=== PATIENT | male | born 1950 | race Caucasian/White ===

== ENCOUNTER 2018-04-13 15:21 | Emergency (ER) | payer MEDICARE ==
--- NOTE | 2018-04-13 15:59 | ER Document Report ---
ED General - General Chief Complaint: Flu Symptoms Stated Complaint: FEVER, NAUSEA Time Seen by Provider: 04/13/18 15:35 Notes: The patient is a 68-year-old male who presents with 1 days of subjective fevers , chills and nausea. He took some Kaopectate and his nausea has resolved. Patient also has 2 months of a rash over his left lower leg. 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 The rash is not expanding. Patient denies recent travel, shortness of breath, chest pain, abdominal pain, diarrhea, headache or sick contacts. TRAVEL OUTSIDE OF THE [place] IN LAST 30 DAYS: No - Related Data Allergies/Adverse Reactions: No Known Allergies Allergy (Verified 04/13/18 15:34) Past Medical History - General Information source: Patient - Social History Smoking Status: Never Smoker Chew tobacco use (# tins/day): No Frequency of alcohol use: None Drug Abuse: None Family History: Reviewed & Not Pertinent Patient has suicidal ideation: No Patient has homicidal ideation: No Renal/ Medical History: Denies: Hx Peritoneal Dialysis Past Surgical History: Reports: Hx Orthopedic Surgery Review of Systems - Review of Systems Notes: REVIEW OF SYSTEMS: CONSTITUTIONAL: +fevers, +chills EENT: -eye pain, -difficulty swallowing, -nasal congestion CARDIOVASCULAR: -chest pain, -syncope. RESPIRATORY: -cough, -SOB GASTROINTESTINAL: -abdominal pain, +nausea, -vomiting, -diarrhea GENITOURINARY: -dysuria, -hematuria MUSCULOSKELETAL: -back pain, -neck pain SKIN: +left leg rash HEMATOLOGIC: -easy bruising or bleeding. LYMPHATIC: -swollen, enlarged glands. NEUROLOGICAL: -altered mental status or loss of consciousness, -headache, - neurologic symptoms PSYCHIATRIC: -anxiety, -depression. ALL OTHER SYSTEMS REVIEWED AND NEGATIVE. Physical Exam - Vital signs Vitals: Temp Pulse BP Pulse Ox 99.1 F 84 143/72 H 95 04/13/18 15:27 04/13/18 15:27 04/13/18 15:27 04/13/18 15:27 - Notes Notes: PHYSICAL EXAMINATION: GENERAL: Well-appearing, well-nourished and in no acute distress. HEAD: Atraumatic, normocephalic. EYES: Pupils equal round and reactive to light, extraocular movements intact, sclera anicteric, conjunctiva are normal. ENT: nares patent, oropharynx clear without exudates. Moist mucous membranes. NECK: Normal range of motion, supple without lymphadenopathy LUNGS: Breath sounds clear to auscultation bilaterally and equal. No wheezes rales or rhonchi. HEART: Regular rate and rhythm without murmurs ABDOMEN: Soft, nontender, normoactive bowel sounds. No guarding, no rebound. No masses appreciated. EXTREMITIES: Normal range of motion, no pitting or edema. No cyanosis. NEUROLOGICAL: Cranial nerves grossly intact. Normal speech. No acute sensory and motor deficits. PSYCH: Normal mood, normal affect. SKIN: 3 cm circular erythematous macular area over left medial calf. Course - Re-evaluation Re-evalutation: Patient is well-appearing. His vital signs are normal and blood work is unremarkable, other than a slight leukocytosis. This appears nonspecific as there are no fevers. He has had this rash of his left lower leg for over a month. It does not appear consistent with [place] spotted fever, syphilis, Lyme, Coles-Karan or TEN. It is blanchable and may be associated with a mild vasculitis. Instructed him to follow-up with his primary care physician for further evaluation treatment. - Vital Signs Vital signs: Temp Pulse Resp BP Pulse Ox 98.3 F 86 16 142/80 H 96 04/13/18 17:42 04/13/18 17:42 04/13/18 17:42 04/13/18 17:42 04/13/18 17:42 - Laboratory Result Diagrams: 04/13/18 16:06 04/13/18 16:06 Laboratory results interpreted by me: 04/13/18 04/13/18 16:06 16:06 WBC 12.6 H RBC 3.93 L Hgb 12.5 L Hct 36.0 L Seg Neuts % (Manual) 94 H Band Neutrophils % 1 L Lymphocytes % (Manual) 2 L Abs Neuts (Manual) 12.0 H Abs Lymphs (Manual) 0.3 L Sodium 132.7 L Chloride 93 L Glucose 135 H Creatine Kinase 48 L - Diagnostic Test Radiology reviewed: Image reviewed, Reports reviewed Radiology results interpreted by me: CXR: NAD Discharge - Discharge Clinical Impression: Cough, Nausea Condition: Stable Disposition: HOME, SELF-CARE Additional Instructions: VOMITING: Vomiting (or nausea without vomiting) can be caused by many other different problems. It can mean that something's wrong with the stomach, such as ulcers or inflammation or the intestinal tract, such as appendicitis. But it can also be a symptom of a problem that has nothing to do with the stomach or intestines. Vomiting is common with severe headaches, earaches, tonsillitis, and kidney infections, etc. We see it with pneumonia or heart attacks. Drugs can cause nausea and vomiting. Many abdominal problems cause vomiting; for example, gallstones, kidney stones, pancreatitis, and intestinal obstruction ( blocked bowels). In most cases, curing the vomiting depends on fixing the problem that caused it. For temporary relief, we may use an anti-nausea medicine. For home use, we can prescribe suppositories, chewable pills, pills that dissolve in the mouth, or liquid anti-nausea drugs. If the vomiting seems to be caused by a problem in the stomach, acid-suppressing drugs may be prescribed as well. It's important to avoid dehydration. Sip small amounts of clear liquids ( soft drinks, tea, broth, etc) . Try to take fluids frequently even if you are vomiting to prevent dehydration. Take increasing amounts of fluid and when liquids are being consumed successfully, advance to small amounts of bland food (toast, soups, mashed potatoes, etc.) until you are able to resume a regular diet. Avoid aspirin, tobacco, and alcohol. If the vomiting worsens, if the problem that's making you vomit worsens, or if there's evidence of bleeding in the stomach (such as black, tarry stool, or bloody or black vomit), you should return immediately. Also, return if abdominal pain worsens or becomes localized to one area or you develop high fever. Call your doctor if you aren't improved in 24 hours. DIARRHEA, NON-SPECIFIC: Diarrhea means frequent, watery stools. There are many causes. Any problem that keeps the intestinal tract from absorbing water from the stool can lead to diarrhea. A sudden new diarrhea problem is usually caused by a virus, food sensitivity, toxic bacteria, or drugs. In this case, we expect the problem to go away soon. Testing is done only if you seem seriously ill from the diarrhea. If you have chronic diarrhea, or diarrhea that keeps coming back, we need to find out why. Chronic diarrhea can be due to inflammation of the bowels such as Crohn's disease or ulcerative colitis, food sensitivity such as intolerance to lactose or wheat protein, irritable bowel syndrome, and other problems. If your diarrhea is a significant problem but it's not clear why you have it, we' ll refer you to a specialist for further testing. During an episode of diarrhea, drink small amounts (two to six ounces) of clear liquids (soft drinks, sport drinks, herb teas, broth, etc). Take fluids frequently to prevent dehydration. It's usually not a problem to take mild anti- diarrhea medication such as Kaopectate or Pepto-Bismol. As the diarrhea eases, advance to small amounts of bland food (mashed potato, toast) for 24 hours. Call the physician if blood appears in your vomit or stool, if vomiting lasts longer than 24 hours, if the abdominal pain worsens or becomes localized to one area, if you develop high fever, or if you become lightheaded and weak. VIRAL SYNDROME: The physician has diagnosed a viral infection. Viruses not only cause "colds," but can cause many different symptoms including generalized aching, fever, headache, cough, diarrhea, nausea, vomiting, and fatigue. The treatment, for the most part, is simply relief of symptoms. This means that antibiotics are usually not given. Rest, fluids, pain medications and, occasionally, medication for the specific symptoms that are most bothersome will be prescribed. Use good handwashing to avoid passing the virus to others. Shared toys should be cleaned with disinfectant. Clean the toilets, sinks, and counter surfaces in bathrooms. Launder clothing in hot water. Contact the physician if you develop any new or unusual symptoms such as severe headache, stiff neck, high fever, chest pain, productive cough, or shortness of breath. You should be rechecked if you don't see marked improvement within seven to 10 days. ANTINAUSEA MEDICATION: You have been given a medication to suppress nausea and vomiting. This type of medication can be given as a shot, pill, or suppository. It will usually last for many hours. Pills and shots usually last six to eight hours. For the typical illness, only one or two doses of the medication may be necessary. Mild lightheadedness may occur. This type of medicine can cause drowsiness. Do not drive or operate dangerous machinery while under its influence. Do not mix with alcohol. See your doctor at once if you have muscle spasms or tightness, or uncontrollable motions (particularly of the neck, mouth, or jaw). Persistent vomiting or severe lightheadedness should also be evaluated by the physician. FOLLOW-UP CARE: If you have been referred to a physician for follow-up care, call the physician s office for an appointment as you were instructed or within the next two days. If you experience worsening or a significant change in your symptoms, notify the physician immediately or return to the Emergency Department at any time for re-evaluation. Prescriptions: Ondansetron [Zofran Odt 4 mg Tablet] 1 - 2 tab PO Q4H PRN #15 tab.rapdis PRN Reason: For Nausea/Vomiting Forms: Elevated Blood Pressure Referrals: KARINA CALI NP-C [NURSE PRACTITIONER] - Follow up as needed
[2018-04-13 16:23] LABS: HEMOGLOBIN 12.5 g/dL (13.5-17.0); MEAN CORPUSCULAR HEMOGLOBIN 31.9 pg (27.0-33.4); MEAN CORPUSCULAR HGB CONC 34.8 g/dL (32.0-36.0); MEAN CORPUSCULAR VOLUME 92 fl (80-97); PLATELET COUNT 266 10^3/uL (150-450); RED BLOOD COUNT 3.93 10^6/uL (4.35-5.55); RED CELL DISTRIBUTION WIDTH 13.6 % (11.5-14.0); WHITE BLOOD COUNT 12.6 10^3/uL (4.0-10.5)
[2018-04-13 16:35] LABS: ALANINE AMINOTRANSFERASE 31 U/L (21-72); ALBUMIN 3.9 g/dL (3.5-5.0); ALKALINE PHOSPHATASE 69 U/L (38-126); ANION GAP 10 (5-19); ASPARTATE AMINO TRANSFERASE 32 U/L (17-59); BILIRUBIN,DIRECT 0.3 mg/dL (0.0-0.4); BILIRUBIN,TOTAL 0.7 mg/dL (0.2-1.3); BLOOD UREA NITROGEN 12 mg/dL (7-20); CALCIUM 9.3 mg/dL (8.4-10.2); CARBON DIOXIDE 30 mmol/L (22-30); CHLORIDE 93 mmol/L (98-107); CREATINE KINASE 48 U/L (55-170); GLUCOSE 135 mg/dL (75-110); POTASSIUM 4.2 mmol/L (3.6-5.0); SODIUM 132.7 mmol/L (137-145); TOTAL PROTEIN 6.5 g/dL (6.3-8.2)
--- NOTE | 2018-04-13 16:43 | RADIOLOGY REPORT (SQ) ---
EXAM DESCRIPTION: CHEST 2 VIEWS COMPLETED DATE/TIME: 04/13/2018 4:18 pm REASON FOR STUDY: cough, fevers COMPARISON: February 2009 EXAM PARAMETERS: NUMBER OF VIEWS: two views TECHNIQUE: Digital Frontal and Lateral radiographic views of the chest acquired. RADIATION DOSE: NA LIMITATIONS: none FINDINGS: LUNGS AND PLEURA: No opacities, masses or pneumothorax. No pleural effusion. MEDIASTINUM AND HILAR STRUCTURES: No masses or contour abnormalities. HEART AND VASCULAR STRUCTURES: Heart normal size. No evidence for failure. BONES: No acute findings. HARDWARE: None in the chest. OTHER: Retrocardiac hiatal hernia is identified. IMPRESSION: NO ACUTE RADIOGRAPHIC FINDING IN THE CHEST. TECHNICAL DOCUMENTATION: JOB ID: [id number] [employer]- All Rights Reserved Reading location - IP/workstation name: [email or web address]
[2018-04-13 16:51] LABS: ABSOLUTE LYMPHOCYTES# (MANUAL) 0.3 10^3/uL (0.5-4.7); ABSOLUTE MONOCYTES # (MANUAL) 0.4 10^3/uL (0.1-1.4); BAND NEUTROPHILS % (MANUAL) 1 % (3-5); BASOPHILS % (MANUAL) 0 % (0-2); EOSINOPHILS % (MANUAL) 0 % (0-6); LYMPHOCYTES % (MANUAL) 2 % (13-45); MONOCYTES % (MANUAL) 3 % (3-13); SEGMENTED NEUTROPHILS % (MAN) 94 % (42-78); TOTAL CELLS COUNTED 100
[2018-04-13 16:53] LABS: HYPOCHROMASIA SLIGHT; PLATELET COMMENT ADEQUATE
[2018-04-13 17:45] VITALS: BP 142/80
== END 2018-04-13 17:50 | disposition home or self-care (01) ==
LOC: ER 15:21
DX: R05 Cough (principal); R11.0 Nausea; R50.9 Fever, unspecified; R21 Rash and other nonspecific skin eruption; G83.14 Monoplegia of lower limb affecting left nondominant side
CPT/HCPCS: 36415; 71046; 80053; 82550; 85025; 99284

== ENCOUNTER → 2018-04-18 | Outpatient (CLI) | payer MEDICARE ==
[2018-04-18 09:48] VITALS: BP 122/70
[2018-04-18 12:16] LABS: HEMATOCRIT 36.4 % (37.9-51.0); HEMOGLOBIN 12.7 g/dL (13.5-17.0); MEAN CORPUSCULAR HEMOGLOBIN 31.8 pg (27.0-33.4); MEAN CORPUSCULAR VOLUME 91 fl (80-97); PLATELET COUNT 386 10^3/uL (150-450); RED BLOOD COUNT 4.01 10^6/uL (4.35-5.55); RED CELL DISTRIBUTION WIDTH 13.2 % (11.5-14.0)
[2018-04-18 12:21] LABS: APPEARANCE,URINE CLEAR; BILIRUBIN,URINE NEGATIVE (NEGATIVE); COLOR,URINE YELLOW; GLUCOSE, URINE NEGATIVE (NEGATIVE); KETONES,URINE NEGATIVE (NEGATIVE); LEUKOCYTE ESTERASE,URINE NEGATIVE (NEGATIVE); NITRITE,URINE NEGATIVE (NEGATIVE); PROTEIN,URINE NEGATIVE (NEGATIVE); URINE SPECIFIC GRAVITY 1.012
[2018-04-18 12:45] LABS: ANION GAP 13 (5-19); BLOOD UREA NITROGEN 10 mg/dL (7-20); CARBON DIOXIDE 28 mmol/L (22-30); CHLORIDE 93 mmol/L (98-107); GLUCOSE 108 mg/dL (75-110); POTASSIUM 4.8 mmol/L (3.6-5.0); SODIUM 134.2 mmol/L (137-145)
--- NOTE | 2018-04-18 19:42 | EKG REPORT ---
SEVERITY:- NORMAL ECG - SINUS RHYTHM : Confirmed by: Maxine Milner MD 18-Apr-2018 19:41:05
== END ==
LOC: OD 11:08 → EDSTATUS 05-09 09:00
PROVIDERS: ATTEND Orthopaedic Surgery
DX: Z01.818 Encounter for other preprocedural examination (principal)
CPT/HCPCS: 36415; 80048; 81001; 85027; 93005; 93010

== ENCOUNTER 2018-09-15 16:32 | Emergency (ER) | payer MEDICARE ==
--- NOTE | 2018-09-15 17:06 | ER Document Report ---
ED Medical Screen (RME) - General Chief Complaint: Irregular Pulse Stated Complaint: IRREGULAR HEART RATE Time Seen by Provider: 09/15/18 16:53 Notes: Patient with known A. fib, reports heart rate in the 140-160 range since 830 this morning. The room became available so he was taken straight back. TRAVEL OUTSIDE OF THE [place] IN LAST 30 DAYS: No - Related Data Allergies/Adverse Reactions: No Known Allergies Allergy (Verified 04/18/18 09:17) Past Medical History - Social History Chew tobacco use (# tins/day): No Frequency of alcohol use: None Drug Abuse: None - Past Medical History Cardiac Medical History: Reports: Hx Hypertension Denies: Hx Coronary Artery Disease, Hx Heart Attack Pulmonary Medical History: Denies: Hx Asthma, Hx Bronchitis, Hx COPD, Hx Pneumonia Neurological Medical History: Denies: Hx Cerebrovascular Accident, Hx Seizures Renal/ Medical History: Denies: Hx Peritoneal Dialysis Musculoskeltal Medical History: Reports Hx Arthritis Past Surgical History: Reports: Hx Orthopedic Surgery - back, bilateral feet - Immunizations Hx Diphtheria, Pertussis, Tetanus Vaccination: Yes - unsure within past 10 years History of Influenza Vaccine for 07/2017 - 12/2017 Season: Yes Influenza Administration Date for 07/2017 - 12/2017 Season: 07/24/17 Doctor's Discharge - Discharge Referrals: RONNIE RANGEL MD [Primary Care Provider] - Follow up as needed
[2018-09-15] MEDS ORDERED: ASPIRIN 81 MG TABLET, CHEWABLE PO ONE (17:17)
[2018-09-15] MEDS ORDERED: DILTIAZEM HCL/D5W 125 MG/125 ML RTUINJ IV PRN (17:18)
[2018-09-15] MEDS ORDERED: DILTIAZEM HCL INJ 25 MG/5 ML VIAL IV ONE (17:18)
--- NOTE | 2018-09-15 17:20 | ER Document Report ---
ED Cardiac - General Chief Complaint: Irregular Pulse Stated Complaint: IRREGULAR HEART RATE Time Seen by Provider: 09/15/18 16:53 Notes: This is a pleasant 68-year-old male to emergency department with tachycardia. Patient has a long-standing history of atrial fibrillation. Normally responsive to beta-blockers. Patient felt his heart racing shortly prior to arrival. Took 100 mg of metoprolol. His heart rate did not decrease. He denied any chest pain but did have some shortness of breath. Patient does have a history of paralysis. Had a fall from 50 feet and paralyzed from the waist down but has since regained movement in his legs however he cannot flex or extend his ankles. TRAVEL OUTSIDE OF THE [place] IN LAST 30 DAYS: No - HPI Patient complains to provider of: Palpitations, Shortness of breath Was the onset of pain: Sudden Is the pain a: Chronic problem Quality of pain: None Severity now: Moderate Severity at worst: Moderate Pain level currently: 0 - Related Data Allergies/Adverse Reactions: No Known Allergies Allergy (Verified 04/18/18 09:17) Past Medical History - General Information source: Patient - Social History Smoking Status: Never Smoker Chew tobacco use (# tins/day): No Frequency of alcohol use: None Drug Abuse: None Lives with: Spouse/Significant other Family History: Reviewed & Not Pertinent Patient has suicidal ideation: No Patient has homicidal ideation: No - Past Medical History Cardiac Medical History: Reports: Hx Hypertension, Other - Atrial fibrillation Denies: Hx Coronary Artery Disease, Hx Heart Attack Pulmonary Medical History: Denies: Hx Asthma, Hx Bronchitis, Hx COPD, Hx Pneumonia Neurological Medical History: Denies: Hx Cerebrovascular Accident, Hx Seizures Renal/ Medical History: Denies: Hx Peritoneal Dialysis Musculoskeletal Medical History: Reports Hx Arthritis Past Surgical History: Reports: Hx Orthopedic Surgery - back, bilateral feet - Immunizations Hx Diphtheria, Pertussis, Tetanus Vaccination: Yes - unsure within past 10 years Hx Pneumococcal Vaccination: 07/24/17 Review of Systems - Review of Systems Notes: Constitutional: denies: Chills, Diaphoresis, Fever, Malaise, Weakness EENT: denies: Eye discharge, Blurred vision, Tearing, Double vision, Nose congestion, Nose discharge, Throat swelling, Mouth pain Cardiovascular: Tachycardia, palpitations, mild shortness of breath Respiratory: denies: Cough, Wheezing,. Does complain of shortness of breath Gastrointestinal: denies: Abdominal pain, Diarrhea, Nausea, Vomiting, Black stools, bright red blood in stool Genitourinary: denies: Burning, Dysuria, Discharge, Frequency, Flank pain, Hematuria Musculoskeletal: denies: Joint pain, Joint swelling, Muscle pain, Muscle stiffness, back pain Hematologic/Lymphatic: denies: Anemia, Easy bleeding, Easy bruising, Blood clots Neurological/Psychological: denies: Confusion, Dementia, Depression, Loss of consciousness. Patient does have partial paralysis to the lower extremities. Skin: No lesions, no masses, no skin breakdown, no abscesses Physical Exam - Vital signs Vitals: Resp Pulse Ox 15 99 09/15/18 17:08 09/15/18 17:08 Interpretation: Tachycardic - General General appearance: Appears well, Alert - HEENT Head: Normocephalic, Atraumatic Eyes: Normal Pupils: PERRL - Respiratory Respiratory status: No respiratory distress Chest status: Nontender Breath sounds: Normal Chest palpation: Normal - Cardiovascular Rhythm: Tachycardia Heart sounds: Normal auscultation Murmur: No - Abdominal Inspection: Normal Distension: No distension Bowel sounds: Normal Tenderness: Nontender Organomegaly: No organomegaly - Back Back: Normal, Nontender - Extremities General upper extremity: Normal inspection, Nontender, Normal color, Normal ROM , Normal temperature General lower extremity: Normal inspection, Nontender, Normal color, Normal temperature. No: Normal ROM, Normal weight bearing, Amando's sign - Neurological Neuro grossly intact: Yes Cognition: Normal Orientation: AAOx4 [place] Coma Scale Eye Opening: Spontaneous [place] Coma Scale Verbal: Oriented [place] Coma Scale Motor: Obeys Commands [place] Coma Scale Total: 15 Speech: Normal Motor strength normal: LUE, RUE. No: LLE, RLE Sensory: Normal - Psychological Associated symptoms: Normal affect, Normal mood - Skin Skin Temperature: Warm Skin Moisture: Dry Skin Color: Other - And has a wound VAC present on the sacrum for a sacral decubitus. Course - Re-evaluation Re-evalutation: 09/15/18 20:39 Patient seen initially on arrival. Patient had diltiazem ordered. Bolus and drip. Before the medication could be given patient spontaneously converted into a normal sinus rhythm. Repeat EKG performed. Patient is a normal sinus rhythm with a heart rate of 60. No signs of ST segment elevation or depression. First set of labs fairly unremarkable with exception of slightly elevated WBC count. Currently does not need any more rate control. I am ordering a repeat set of cardiac labs at this time. 09/15/18 21:48 Laboratory 09/15/18 09/15/18 09/15/18 17:20 17:20 17:20 WBC 12.5 H RBC 4.52 Hgb 12.0 L Hct 36.9 L MCV 82 MCH 26.7 L MCHC 32.6 RDW 14.2 H Plt Count 443 Seg Neutrophils % 74.6 Lymphocytes % 15.4 Monocytes % 8.2 Eosinophils % 1.2 Basophils % 0.6 Absolute Neutrophils 9.4 H Absolute Lymphocytes 1.9 Absolute Monocytes 1.0 Absolute Eosinophils 0.2 Absolute Basophils 0.1 Sodium 135.7 L Potassium 4.3 Chloride 97 L Carbon Dioxide 26 Anion Gap 13 BUN 13 Creatinine 0.56 Est GFR ( Amer) > 60 Est GFR (Non-Af Amer) > 60 Glucose 128 H Calcium 9.0 Total Bilirubin 0.3 Direct Bilirubin 0.2 Neonat Total Bilirubin Not Reportable Neonat Direct Bilirubin Not Reportable Neonat Indirect Bili Not Reportable AST 23 ALT 21 Alkaline Phosphatase 92 Creatine Kinase 49 L CK-MB (CK-2) 0.89 Troponin I < 0.012 Total Protein 6.9 Albumin 3.9 09/15/18 20:19 WBC RBC Hgb Hct MCV MCH MCHC RDW Plt Count Seg Neutrophils % Lymphocytes % Monocytes % Eosinophils % Basophils % Absolute Neutrophils Absolute Lymphocytes Absolute Monocytes Absolute Eosinophils Absolute Basophils Sodium Potassium Chloride Carbon Dioxide Anion Gap BUN Creatinine Est GFR ( Amer) Est GFR (Non-Af Amer) Glucose Calcium Total Bilirubin Direct Bilirubin Neonat Total Bilirubin Neonat Direct Bilirubin Neonat Indirect Bili AST ALT Alkaline Phosphatase Creatine Kinase CK-MB (CK-2) Troponin I 0.058 Total Protein Albumin Chest X-Ray 09/15/18 17:18 IMPRESSION: NO ACUTE RADIOGRAPHIC FINDING IN THE CHEST. LARGE RETROCARDIAC HIATAL HERNIA Patient did have a slightly increased second cardiac troponin at 0.058. Patient is completely asymptomatic at this time. Consulted with [employer] scoreboard operator on -call, Dr. Malone. He does not recommend admitting the patient. Patient states that his symptoms began early this morning. Patient has been basically extremely tachycardic for the better part of about 6-8 hours and was only complaining of shortness of breath but with no chest pain. Patient's heart rate is currently in the 50s. Patient would like to go home. Dr. Malone would like me to give the patient his cell phone number so I will do this. He states to call his office on Tuesday and he will get him in and do an evaluation on him. Patient's family is all present. - Vital Signs Vital signs: Temp Pulse Resp BP Pulse Ox 15 119/63 98 09/15/18 18:01 09/15/18 18:01 09/15/18 18:01 - Laboratory Result Diagrams: 09/15/18 17:20 09/15/18 17:20 Laboratory results interpreted by me: 09/15/18 09/15/18 17:20 17:20 WBC 12.5 H Hgb 12.0 L Hct 36.9 L MCH 26.7 L RDW 14.2 H Absolute Neutrophils 9.4 H Sodium 135.7 L Chloride 97 L Glucose 128 H Creatine Kinase 49 L - EKG Interpretation by Me EKG shows normal: Intervals, QRS Complexes, ST-T Waves Rate: Tachycardia Additional EKG results interpreted by me: 09/15/18 20:38 Atrial fibrillation with rapid ventricular response. Rate of 143 Critical Care Note - Critical Care Note Total time excluding time spent on procedures (mins): 45 Comments: A. fib with RVR, tachycardia, shortness of breath Discharge - Discharge Clinical Impression: Atrial fibrillation with rapid ventricular response Condition: Good Disposition: HOME, SELF-CARE Instructions: Atrial Fibrillation ([facility]) Additional Instructions: Please call Dr. Malone office at [phone] to schedule a appointment. In the event that you develop chest pain, worsening symptoms or other concerns please return immediately. Continue to take all of your regular medications as prescribed. Referrals: RONNIE RANGEL MD [Primary Care Provider] - Follow up as needed HILARY MALONE MD [ACTIVE STAFF] - Follow up in 3-5 days
[2018-09-15 17:33] LABS: ABSOLUTE BASOPHILS # (AUTO) 0.1 10^3/uL (0.0-0.2); ABSOLUTE EOSINOPHILS # (AUTO) 0.2 10^3/uL (0.0-0.6); ABSOLUTE LYMPHOCYTES (AUTO) 1.9 10^3/uL (0.5-4.7); ABSOLUTE NEUT (AUTO) 9.4 10^3/uL (1.7-8.2); BASOPHILS % (AUTO) 0.6 % (0-2); EOSINOPHILS % (AUTO) 1.2 % (0-6); HEMATOCRIT 36.9 % (37.9-51.0); LYMPHOCYTES % (AUTO) 15.4 % (13-45); MEAN CORPUSCULAR HEMOGLOBIN 26.7 pg (27.0-33.4); MEAN CORPUSCULAR HGB CONC 32.6 g/dL (32.0-36.0); MEAN CORPUSCULAR VOLUME 82 fl (80-97); MONOCYTES % (AUTO) 8.2 % (3-13); PLATELET COUNT 443 10^3/uL (150-450); RED BLOOD COUNT 4.52 10^6/uL (4.35-5.55); RED CELL DISTRIBUTION WIDTH 14.2 % (11.5-14.0); SEGMENTED NEUTROPHILS % (AUTO) 74.6 % (42-78); TOTAL CELLS COUNTED % (AUTO) 100 %; WHITE BLOOD COUNT 12.5 10^3/uL (4.0-10.5)
[2018-09-15 17:56] LABS: ALANINE AMINOTRANSFERASE 21 U/L (21-72); ALBUMIN 3.9 g/dL (3.5-5.0); ALKALINE PHOSPHATASE 92 U/L (38-126); ANION GAP 13 (5-19); ASPARTATE AMINO TRANSFERASE 23 U/L (17-59); BILIRUBIN,DIRECT 0.2 mg/dL (0.0-0.4); BILIRUBIN,TOTAL 0.3 mg/dL (0.2-1.3); BLOOD UREA NITROGEN 13 mg/dL (7-20); CARBON DIOXIDE 26 mmol/L (22-30); CHLORIDE 97 mmol/L (98-107); CREATINE KINASE 49 U/L (55-170); GLUCOSE 128 mg/dL (75-110); POTASSIUM 4.3 mmol/L (3.6-5.0); SODIUM 135.7 mmol/L (137-145); TOTAL PROTEIN 6.9 g/dL (6.3-8.2)
--- NOTE | 2018-09-15 17:59 | RADIOLOGY REPORT (SQ) ---
EXAM DESCRIPTION: CHEST SINGLE VIEW COMPLETED DATE/TIME: 09/15/2018 5:31 pm REASON FOR STUDY: sob COMPARISON: Two-view chest 04/13/2018 EXAM PARAMETERS: NUMBER OF VIEWS: One view. TECHNIQUE: Single frontal radiographic view of the chest acquired. RADIATION DOSE: NA LIMITATIONS: None. FINDINGS: LUNGS AND PLEURA: No opacities, masses or pneumothorax. No pleural effusion. MEDIASTINUM AND HILAR STRUCTURES: Large retrocardiac hiatal hernia HEART AND VASCULAR STRUCTURES: Heart normal in size. Normal vasculature. BONES: No acute findings. HARDWARE: None in the chest. OTHER: No other significant finding. IMPRESSION: NO ACUTE RADIOGRAPHIC FINDING IN THE CHEST. LARGE RETROCARDIAC HIATAL HERNIA TECHNICAL DOCUMENTATION: JOB ID: [id number] [employer]- All Rights Reserved Reading location - IP/workstation name: [email or web address]
[2018-09-15] MEDS ORDERED: NORMAL SALINE 500 ML IV ONE (18:00)
[2018-09-15 18:08] LABS: CREATINE KINASE MB 0.89 ng/mL (<4.55)
[2018-09-15 18:09] LABS: TROPONIN I < 0.012 ng/mL
--- NOTE | 2018-09-15 19:15 | EKG REPORT ---
SEVERITY:- NORMAL ECG - SINUS RHYTHM : Confirmed by: Maxine Milner MD 15-Sep-2018 19:14:29
--- NOTE | 2018-09-15 19:15 | EKG REPORT ---
SEVERITY:- ABNORMAL ECG - JUNCTIONAL TACHYCARDIA ST DEPRESSION, PROBABLY RATE RELATED : Confirmed by: Maxine Milner MD 15-Sep-2018 19:14:35
[2018-09-15 21:54] VITALS: BP 105/56
== END 2018-09-15 22:00 | disposition home or self-care (01) ==
LOC: ER 16:32
DX: R00.0 Tachycardia, unspecified (principal); I48.91 Unspecified atrial fibrillation; R06.02 Shortness of breath; I10 Essential (primary) hypertension
CPT/HCPCS: 93005; 99291; 96360; 96361; 36415; 82553; 82550; 85025; 80053; 84484; 71045; 93010; A9270; J7040

== ENCOUNTER 2018-10-29 01:08 | Emergency (ER) | payer MEDICARE ==
[2018-10-29] MEDS ORDERED: OXYCODONE-ACETAMINOPHEN 5-325 MG TABLET PO ONE (02:10)
--- NOTE | 2018-10-29 02:10 | ER Document Report ---
ED Fall - General Chief Complaint: Fall Stated Complaint: FALL/RIB PAIN Time Seen by Provider: 10/29/18 01:58 TRAVEL OUTSIDE OF THE [place] IN LAST 30 DAYS: No - HPI Notes: Patient is a 68-year-old male that presents to the emergency department for chief complaint of left rib pain. Just prior to arrival patient had a mechanical fall and landed on his left side. He is currently on Eliquis for A. fib. He is complaining of pain on his left rib cage that is worse with inhalation. He has not taken any medication for this pain. He denies any head injury or loss of consciousness. He states he has poor sensation in his lower extremities and walks with crutches. He was trying to turn a corner and lost his balance falling sideways. He denied any syncopal event. Past Medical History: A. fib Past Surgical History: Reviewed in chart Social History: Denies drugs alcohol and tobacco Family History: Reviewed and noncontributory for presenting illness Allergies: Reviewed, see documented allergy list. REVIEW OF SYSTEMS: CONSTITUTIONAL : No fever No chills No diaphoresis No recent illness EENT: No vision changes No congestion No sore throat CARDIOVASCULAR: No chest pain No palpitations RESPIRATORY: No shortness of breath No cough No difficulty breathing GASTROINTESTINAL: No abdominal pain No nausea No vomiting No diarrhea GENITOURINARY: No dysuria No hematuria No difficulty urinating MUSCULOSKELETAL: Left rib pain No back pain No leg pain No arm pain SKIN: No rashes No lesions LYMPHATIC: No swollen, enlarged glands. NEUROLOGICAL: No lightheadedness No headache No weakness No paresthesias PSYCHIATRIC: No anxiety No depression PHYSICAL EXAMINATION: Vital signs reviewed, nursing noted reviewed. GENERAL: Well-appearing, well-nourished and in no acute distress. HEAD: Atraumatic, normocephalic. EYES: Eyes appear normal, extraocular movements intact, sclera anicteric, conjunctiva are normal. ENT: nares patent, oropharynx clear without exudates. Moist mucous membranes. NECK: Normal range of motion, supple without lymphadenopathy, no midline spinal tenderness Back: No midline thoracic or lumbar spinal tenderness LUNGS: Breath sounds clear to auscultation bilaterally and equal. No wheezes rales or rhonchi. No flail segments or crepitus. Lateral left rib cage tenderness with overlying small hematoma and abrasion. No active bleeding. HEART: Regular rate and rhythm without murmurs ABDOMEN: Soft, nontender, normoactive bowel sounds. No rebound, guarding, or rigidity. No masses appreciated. EXTREMITIES: Nontender, good range of motion, no pitting or edema. NEUROLOGICAL: Lower extremity numbness and weakness bilaterally, normal upper extremities. PSYCH: Normal mood, normal affect. SKIN: Warm, Dry, normal turgor, no rashes. Abrasion to lateral chest wall. sacral wound VAC - Related data Allergies/Adverse Reactions: No Known Allergies Allergy (Verified 04/18/18 09:17) Past Medical History - Social History Smoking Status: Never Smoker Family History: Reviewed & Not Pertinent - Past Medical History Cardiac Medical History: Reports: Hx Hypertension Denies: Hx Coronary Artery Disease, Hx Heart Attack Pulmonary Medical History: Denies: Hx Asthma, Hx Bronchitis, Hx COPD, Hx Pneumonia Neurological Medical History: Denies: Hx Cerebrovascular Accident, Hx Seizures Renal/ Medical History: Denies: Hx Peritoneal Dialysis Musculoskeletal Medical History: Reports Hx Arthritis Past Surgical History: Reports: Hx Orthopedic Surgery - back, bilateral feet - Immunizations Hx Diphtheria, Pertussis, Tetanus Vaccination: Yes - unsure within past 10 years Hx Pneumococcal Vaccination: 07/24/17 Physical Exam - Vital signs Vitals: Temp Pulse Resp BP Pulse Ox 98.4 F 58 L 22 H 129/55 H 100 10/29/18 01:08 10/29/18 01:08 10/29/18 01:08 10/29/18 01:08 10/29/18 01:08 Course - Re-evaluation Re-evalutation: 10/29/18 02:09 Vitals reviewed. Nursing notes reviewed. Patient given Percocet for pain. 10/29/18 03:20 Patient's x-ray shows no pneumothorax or rib fracture. The radiologist did read a questionable partially visualized thoracic compression fracture however patient is not having any thoracic midline tenderness and has no complaint of thoracic pain I do not feel further imaging of this is currently indicated. Patient will be discharged home with incentive spirometer. He was encouraged to take his home pain medication as needed. He is stable at discharge. Ribs w/Chest X-Ray 10/29/18 01:58 IMPRESSION: No definite rib fracture. - Vital Signs Vital signs: Temp Pulse Resp BP Pulse Ox 98.4 F 58 L 22 H 129/55 H 100 10/29/18 01:08 10/29/18 01:08 10/29/18 01:08 10/29/18 01:08 10/29/18 01:08 Discharge - Discharge Clinical Impression: Chest wall contusion Qualifiers: Encounter type: initial encounter Laterality: left Qualified Code(s): S20.212A - Contusion of left front wall of thorax, initial encounter Condition: Stable Disposition: HOME, SELF-CARE Instructions: Rib Contusion ([facility]) Additional Instructions: Please return to the emergency department if you have any worsening, or concern of your symptoms. Please return to the emergency department if you develop chest pain, difficulty breathing, severe abdominal pain, or ongoing vomiting. Please follow-up with your primary care physician in 2-3 days and any other r ecommended physicians. If prescribed, take all medications as directed. If you have any questions or concerns do not hesitate to return the emergency department for evaluation. Use the incentive spirometer 3 times a day for 10 deep breaths to prevent pneumonia Referrals: RONNIE RANGEL MD [Primary Care Provider] - Follow up in 3-5 days
--- NOTE | 2018-10-29 03:17 | RADIOLOGY REPORT (SQ) ---
CLINICAL HISTORY: trauma COMPARISON: April 13, 2018. TECHNIQUE: XR RIBS UNILATERAL WITH CHEST 10/29/2018 1:58 AM PLASTICS PLATER FINDINGS: Cardiac silhouette is normal in size. Lungs are clear without consolidation, atelectasis, mass or edema. There is no pleural effusion. There is no pneumothorax. Lower thoracic compression fracture is incompletely visualized. There is probable large hiatal hernia. IMPRESSION: No definite rib fracture.
[2018-10-29 04:14] VITALS: BP 108/52
== END 2018-10-29 03:55 | disposition home or self-care (01) ==
LOC: ER 01:08
DX: S20.212A Contusion of left front wall of thorax, initial encounter (principal); R07.81 Pleurodynia; I48.91 Unspecified atrial fibrillation; Z79.01 Long term (current) use of anticoagulants; R20.2 Paresthesia of skin; I10 Essential (primary) hypertension
CPT/HCPCS: 99284; 71101; A9270

== ENCOUNTER 2019-07-04 09:37 | Emergency (ER) | payer MEDICARE ==
[2019-07-04 10:50] LABS: ABSOLUTE BASOPHILS # (AUTO) 0.1 10^3/uL (0.0-0.2); ABSOLUTE EOSINOPHILS # (AUTO) 0.1 10^3/uL (0.0-0.6); ABSOLUTE LYMPHOCYTES (AUTO) 0.9 10^3/uL (0.5-4.7); ABSOLUTE MONOCYTES (AUTO) 0.5 10^3/uL (0.1-1.4); ABSOLUTE NEUT (AUTO) 5.6 10^3/uL (1.7-8.2); EOSINOPHILS % (AUTO) 1.7 % (0-6); HEMATOCRIT 38.1 % (37.9-51.0); HEMOGLOBIN 12.5 g/dL (13.5-17.0); LYMPHOCYTES % (AUTO) 12.1 % (13-45); MEAN CORPUSCULAR HEMOGLOBIN 27.6 pg (27.0-33.4); MEAN CORPUSCULAR HGB CONC 32.8 g/dL (32.0-36.0); MEAN CORPUSCULAR VOLUME 84 fl (80-97); PLATELET COUNT 231 10^3/uL (150-450); RED BLOOD COUNT 4.53 10^6/uL (4.35-5.55); RED CELL DISTRIBUTION WIDTH 23.5 % (11.5-14.0); SEGMENTED NEUTROPHILS % (AUTO) 78.2 % (42-78); TOTAL CELLS COUNTED % (AUTO) 100 %; WHITE BLOOD COUNT 7.2 10^3/uL (4.0-10.5)
[2019-07-04 11:03] LABS: APPEARANCE,URINE SLIGHTLY-CLOUDY; BILIRUBIN,URINE NEGATIVE (NEGATIVE); GLUCOSE, URINE NEGATIVE (NEGATIVE); KETONES,URINE TRACE mg/dL (NEGATIVE); LEUKOCYTE ESTERASE,URINE SMALL (NEGATIVE); NITRITE,URINE NEGATIVE (NEGATIVE); PROTEIN,URINE NEGATIVE (NEGATIVE); URINE SPECIFIC GRAVITY 1.018
[2019-07-04] MEDS ORDERED: ONDANSETRON HCL INJ/PF 4 MG/2 ML SDV IV ONE (11:04)
[2019-07-04 11:05] LABS: COLOR,URINE YELLOW
[2019-07-04 11:10] LABS: ALBUMIN 4.3 g/dL (3.5-5.0); ALKALINE PHOSPHATASE 51 U/L (38-126); ANION GAP 7 (5-19); ASPARTATE AMINO TRANSFERASE 24 U/L (17-59); BILIRUBIN,DIRECT 0.1 mg/dL (0.0-0.4); BILIRUBIN,TOTAL 0.4 mg/dL (0.2-1.3); BLOOD UREA NITROGEN 10 mg/dL (7-20); CALCIUM 9.9 mg/dL (8.4-10.2); CARBON DIOXIDE 31 mmol/L (22-30); CHLORIDE 99 mmol/L (98-107); GLUCOSE 99 mg/dL (75-110); POTASSIUM 3.9 mmol/L (3.6-5.0)
[2019-07-04 11:14] LABS: ANISOCYTOSIS 3+; BURR CELLS SLIGHT; PLATELET COMMENT ADEQUATE; POIKILOCYTOSIS SLIGHT; POLYCHROMASIA SLIGHT
--- NOTE | 2019-07-04 12:22 | RADIOLOGY REPORT (SQ) ---
EXAM DESCRIPTION: CT ABD/PELVIS WITH IV ONLY COMPLETED DATE/TIME: 07/04/2019 11:57 am REASON FOR STUDY: general lower abd pain COMPARISON: None. TECHNIQUE: CT scan of the abdomen and pelvis performed using helical scanning technique with dynamic intravenous contrast injection. No oral contrast. Images reviewed with lung, soft tissue, and bone windows. Reconstructed coronal and sagittal MPR images reviewed. Delayed images for evaluation of the urinary system also acquired. All images stored on PACS. All CT scanners at this facility use dose modulation, iterative reconstruction, and/or weight based d osing when appropriate to reduce radiation dose to as low as reasonably achievable (ALARA). [facility]: Dose Right [facility]: CareDose [facility]: Dose Right [facility]: Teradose 4D [facility]: [employer] CONTRAST TYPE AND DOSE: 94 mL Omnipaque 350- low osmolar. RENAL FUNCTION: BUN 10 creatinine 0.58 RADIATION DOSE: CT Rad equipment meets quality standard of care and radiation dose reduction techniq ues were employed. CTDIvol: NaN mGy. DLP: 0 mGy-cm.. LIMITATIONS: None. FINDINGS: LOWER CHEST: There is a large paraesophageal hernia with the gastric antrum and proximal d uodenum above the diaphragm. LIVER: Normal size. No masses. No dilated ducts. SPLEEN: Normal size. No focal lesions. PANCREAS: No masses. No significant calcifications. No adjacent inflammation or peripancreatic fluid collections. Pancreatic duct not dilated. GALLBLADDER: No identified stones by CT criteria. No inflammatory changes to suggest cholecystitis. ADRENAL GLANDS: No significant masses or asymmetry. RIGHT KIDNEY AND URETER: No solid masses. No significant calcifications. No hydronephrosis or hyd roureter. LEFT KIDNEY AND URETER: No solid masses. No significant calcifications. No hydronephrosis or hydr oureter. AORTA AND VESSELS: No aneurysm. No dissection. Renal arteries, SMA, celiac without stenosis. RETROPERITONEUM: No retroperitoneal adenopathy, hemorrhage or masses. BOWEL AND PERITONEAL CAVITY: There is a large diaphragmatic hernia with the distal stomach and proxim al jejunum above the diaphragm. The stomach is distended. No obvious bowel mass or inflammation is seen. APPENDIX: Not identified. PELVIS: No mass. No free fluid. Normal bladder. ABDOMINAL WALL: No masses. No hernias. BONES: There is marked compression of T1 with a gibbous deformity. This does not appear to be acute. OTHER: No other significant finding. IMPRESSION: Large Bochdalek's hernia with the distal stomach and proximal duodenum above the diaphra gm. There is gastric distention. No other acute findings in the abdomen or pelvis. Osseous finding s as described. TECHNICAL DOCUMENTATION: JOB ID: [id number] Quality ID # [id number]: Final reports with documentation of one or more dose reduction techniques (e.g., Au tomated exposure control, adjustment of the mA and/or kV according to patient size, use of iterative reconstruction technique) 2010 [employer]- All Rights Reserved Reading location - IP/workstation name: [email or web address]
--- NOTE | 2019-07-04 14:54 | ER Document Report ---
ED General - General Chief Complaint: Abdominal Pain Stated Complaint: ABDOMINAL PAIN Time Seen by Provider: 07/04/19 10:51 Notes: Patient is a 69-year-old male presents to the emergency department for lower abdominal pain sharp and intermittent as well as nausea for the last 24 hours. Patient states he is vomited 3 times in the last 24 hours is denying any blood in his emesis. Patient states he has been having "issues" having a bowel mov ement for approximately the last year. Patient is a paraplegic from a lower back injury. 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 States he was scheduled for colonoscopy and an upper endoscopy this past Tuesday. States they were unable to do the colonoscopy because "I guess I did not do the cleanout regimen like I was supposed to." Patient voices they were unable to perform the colonoscopy due to increased amount of stool. Patient was given a different regimen for bowel cleanout and has a rescheduled colonoscopy this coming Tuesday. Patient is denying any black stools or bright red blood per rectum. Past medical history: Paraplegic, patient cannot feel from the waist down but can move bilateral lower extremities, walks with bilateral crutches. Atrial fibrillation, hypertension, GERD, diabetes, hypothyroid Medications: Lisinopril, omeprazole, metformin, atorvastatin, levothyroxine Allergies: None TRAVEL OUTSIDE OF THE [place] IN LAST 30 DAYS: No - Related Data Allergies/Adverse Reactions: No Known Allergies Allergy (Verified 07/04/19 09:42) Past Medical History - General Information source: Patient - Social History Smoking Status: Never Smoker Chew tobacco use (# tins/day): No Frequency of alcohol use: None Drug Abuse: None Family History: Reviewed & Not Pertinent Patient has suicidal ideation: No Patient has homicidal ideation: No - Past Medical History Cardiac Medical History: Reports: Hx Hypertension Denies: Hx Coronary Artery Disease, Hx Heart Attack Pulmonary Medical History: Denies: Hx Asthma, Hx Bronchitis, Hx COPD, Hx Pneumonia Neurological Medical History: Denies: Hx Cerebrovascular Accident, Hx Seizures Renal/ Medical History: Denies: Hx Peritoneal Dialysis Musculoskeletal Medical History: Reports Hx Arthritis Past Surgical History: Reports: Hx Orthopedic Surgery - back, bilateral feet - Immunizations Hx Diphtheria, Pertussis, Tetanus Vaccination: Yes - unsure within past 10 years Hx Pneumococcal Vaccination: 07/24/17 Review of Systems - Review of Systems Constitutional: denies: Fever EENT: No symptoms reported Cardiovascular: No symptoms reported Respiratory: No symptoms reported Gastrointestinal: See HPI Genitourinary: No symptoms reported Male Genitourinary: No symptoms reported Musculoskeletal: See HPI Skin: No symptoms reported Hematologic/Lymphatic: No symptoms reported Neurological/Psychological: See HPI Physical Exam - Vital signs Vitals: Temp Pulse Resp BP Pulse Ox 98.1 F 63 18 160/75 H 97 07/04/19 09:47 07/04/19 09:47 07/04/19 09:47 07/04/19 09:47 07/04/19 09:47 - Notes Notes: GENERAL: Alert, interacts well. No acute distress. HEAD: Normocephalic, atraumatic. EYES: Pupils equal, round, and reactive to light. Extraocular movements intact. ENT: Oral mucosa moist, tongue midline. NECK: Full range of motion. Supple. Trachea midline. LUNGS: Clear to auscultation bilaterally, no wheezes, rales, or rhonchi. No respiratory distress. HEART: Regular rate and rhythm. No murmur ABDOMEN: Soft, generalized tenderness noted bilateral lower quadrants. No epigastric pain, no right or left upper abdominal pain. Non-distended. Bowel sounds present in all 4 quadrants. EXTREMITIES: Moves all 4 extremities spontaneously. No edema, normal radial and dorsalis pedis pulses bilaterally. No cyanosis. Patient can move bilateral lower extremities on his own, is unable to feel sensation bilaterally. BACK: no cervical, thoracic, lumbar midline tenderness. No saddle anesthesia, normal distal neurovascular exam. NEUROLOGICAL: Alert and oriented x3. Normal speech. PSYCH: Normal affect, normal mood. SKIN: Warm, dry, normal turgor. No rashes or lesions noted. Course - Re-evaluation Re-evalutation: After Zofran administration in the emergency department patient is denying any further abdominal pain. He is denying any nausea and states he overall feels "so much better." Patient voices that he does not cath himself, states he typically goes to the restroom every hour and forces himself to urinate. Patient states he does have a cleanout bowel regimen at home. Laboratory 07/04/19 07/04/19 07/04/19 10:29 10:30 10:30 WBC 7.2 RBC 4.53 Hgb 12.5 L Hct 38.1 MCV 84 MCH 27.6 MCHC 32.8 RDW 23.5 H Plt Count 231 Lymph % (Auto) 12.1 L [place] % (Auto) 7.0 Eos % (Auto) 1.7 Baso % (Auto) 1.0 Absolute Neuts (auto) 5.6 Absolute Lymphs (auto) 0.9 Absolute Monos (auto) 0.5 Absolute Eos (auto) 0.1 Absolute Basos (auto) 0.1 Seg Neutrophils % 78.2 H Platelet Comment ADEQUATE Polychromasia SLIGHT Poikilocytosis SLIGHT Anisocytosis 3+ [place] Cells SLIGHT Sodium 137.1 Potassium 3.9 Chloride 99 Carbon Dioxide 31 H Anion Gap 7 BUN 10 Creatinine 0.58 Est GFR ( Amer) > 60 Est GFR (MDRD) Non-Af > 60 Glucose 99 Calcium 9.9 Total Bilirubin 0.4 Direct Bilirubin 0.1 Neonat Total Bilirubin Not Reportable Neonat Direct Bilirubin Not Reportable Neonat Indirect Bili Not Reportable AST 24 ALT 14 Alkaline Phosphatase 51 Total Protein 7.0 Albumin 4.3 Lipase 198.1 Urine Color YELLOW Urine Appearance SLIGHTLY-CLOUDY Urine pH 5.0 Ur Specific [place] 1.018 Urine Protein NEGATIVE Urine Glucose (UA) NEGATIVE Urine Ketones TRACE H Urine Blood NEGATIVE Urine Nitrite NEGATIVE Urine Bilirubin NEGATIVE Urine Urobilinogen 2.0 H Ur Leukocyte Esterase SMALL H Urine WBC (Auto) 39 Urine RBC (Auto) 5 Urine Bacteria (Auto) TRACE Squamous Epi Cells Auto 1 Urine Mucus (Auto) FEW Urine Ascorbic Acid NEGATIVE Abdomen/Pelvis CT 07/04/19 11:04 IMPRESSION: Large Bochdalek's hernia with the distal stomach and proximal duodenum above the diaphragm. There is gastric distention. No other acute findings in the abdomen or pelvis. Osseous findings as described. I have discussed patient's CT imaging with surgical list Dr. Clark. He states this is not a surgical emergency and the patient should follow-up outpa tient. I will treat the patient for urinary tract infection as well as generalized nausea. Discussed with patient he needs to talk to his lapping machine set up operator about his chronic constipation. As well as phone numbers for surgery will be provided. At this time will discharge with return precautions and follow-up recommendations. Verbal discharge instructions given a the bedside and opportunity for questions given. Medication warnings reviewed. Patient is in agreement with this plan and has verbalized understanding of return precautions and the need for primary care follow-up in the next 24-72 hours. This medical record was dictated with voice recognizing software. There may be grammatical, syntax errors that are unintended. - Vital Signs Vital signs: Temp Pulse Resp BP Pulse Ox 98.1 F 63 18 160/75 H 97 07/04/19 09:47 07/04/19 09:47 07/04/19 09:47 07/04/19 09:47 07/04/19 09:47 - Laboratory Result Diagrams: 07/04/19 10:30 07/04/19 10:30 Laboratory results interpreted by me: 07/04/19 07/04/19 07/04/19 10:29 10:30 10:30 Hgb 12.5 L RDW 23.5 H Lymph % (Auto) 12.1 L Seg Neutrophils % 78.2 H Carbon Dioxide 31 H Urine Ketones TRACE H Urine Urobilinogen 2.0 H Ur Leukocyte Esterase SMALL H Discharge - Discharge Clinical Impression: Bochdalek hernia Urinary tract infection Qualifiers: Urinary tract infection type: acute cystitis Hematuria presence: without hematuria Qualified Code(s): N30.00 - Acute cystitis without hematuria Abdominal pain Qualifiers: Abdominal location: lower abdomen, unspecified Qualified Code(s): R10.30 - Lower abdominal pain, unspecified Nausea & vomiting Qualifiers: Vomiting type: unspecified Vomiting Intractability: non-intractable Qualified Code(s): R11.2 - Nausea with vomiting, unspecified Condition: Stable Disposition: HOME, SELF-CARE Instructions: Abdominal Pain ([facility]), Cephalexin ([facility]), Urinary Tract Infection ([facility]), Antinausea Medication ([facility]), Vomiting ([facility]), Hernia ([facility]) Additional Instructions: As we discussed you have been seen and treated in the emergency department for your generalized nausea and abdominal pain. Your images do show signs of a hernia. He is to follow-up with surgery, phone numbers will be provided. Your labs also show signs of urinary tract infection, take antibiotics as prescribed. Please make sure when you follow-up with your colonoscopy you discuss with the lapping machine set up operator you are chronic constipation. Please follow-up with your primary care provider in the next 24 to 48 hours. Return to the emergency room for any further concerns. Prescriptions: Cephalexin Monohydrate [Keflex 500 mg Capsule] 500 mg PO BID 7 Days #14 capsule Referrals: PACO CLARK MD [ACTIVE STAFF] - Follow up as needed
[2019-07-04 15:37] VITALS: BP 131/69
== END 2019-07-04 15:37 | disposition home or self-care (01) ==
LOC: ER 09:37
DX: Q79.0 Congenital diaphragmatic hernia (principal); N30.00 Acute cystitis without hematuria; R10.30 Lower abdominal pain, unspecified; R11.2 Nausea with vomiting, unspecified; R10.9 Unspecified abdominal pain; G82.20 Paraplegia, unspecified; I48.91 Unspecified atrial fibrillation; I10 Essential (primary) hypertension; E11.9 Type 2 diabetes mellitus without complications; Z79.899 Other long term (current) drug therapy
CPT/HCPCS: 36415; 87086; 83690; 85025; 80053; 81001; 74177; J2405

== ENCOUNTER 2019-07-26 05:24 | Observation (INO) | payer MEDICARE ==
--- NOTE | 2019-07-23 12:05 | EKG REPORT ---
SEVERITY:- ABNORMAL ECG - SINUS RHYTHM FIRST DEGREE AV BLOCK : Confirmed by: Maxine Milner MD 23-Jul-2019 12:05:01
[2019-07-23 12:19] LABS: ABSOLUTE EOSINOPHILS # (AUTO) 0.2 10^3/uL (0.0-0.6); ABSOLUTE MONOCYTES (AUTO) 0.5 10^3/uL (0.1-1.4); BASOPHILS % (AUTO) 0.6 % (0-2); EOSINOPHILS % (AUTO) 2.7 % (0-6); HEMATOCRIT 38.1 % (37.9-51.0); HEMOGLOBIN 12.9 g/dL (13.5-17.0); LYMPHOCYTES % (AUTO) 17.8 % (13-45); MEAN CORPUSCULAR HEMOGLOBIN 28.2 pg (27.0-33.4); MEAN CORPUSCULAR HGB CONC 33.8 g/dL (32.0-36.0); MEAN CORPUSCULAR VOLUME 84 fl (80-97); MONOCYTES % (AUTO) 8.7 % (3-13); PLATELET COUNT 237 10^3/uL (150-450); RED BLOOD COUNT 4.56 10^6/uL (4.35-5.55); RED CELL DISTRIBUTION WIDTH 19.4 % (11.5-14.0); SEGMENTED NEUTROPHILS % (AUTO) 70.2 % (42-78); TOTAL CELLS COUNTED % (AUTO) 100 %; WHITE BLOOD COUNT 5.7 10^3/uL (4.0-10.5)
[2019-07-23 12:39] LABS: ANION GAP 11 (5-19); BLOOD UREA NITROGEN 19 mg/dL (7-20); CALCIUM 9.2 mg/dL (8.4-10.2); CARBON DIOXIDE 29 mmol/L (22-30); CHLORIDE 93 mmol/L (98-107); GLUCOSE 96 mg/dL (75-110); POTASSIUM 4.6 mmol/L (3.6-5.0)
[2019-07-23 12:44] LABS: ANISOCYTOSIS 2+; PLATELET COMMENT ADEQUATE
[2019-07-23 12:45] LABS: OVALOCYTES SLIGHT; PLATELET LARGE PRESENT; POIKILOCYTOSIS SLIGHT
[~2019-07-26 05:24] MED LIST: CEFAZOLIN SODIUM 2 GM in DEXTROSE 5%-WATER 100 ML IV PRN; LACTATED RINGERS 1000 ML IV PRN; LIDOCAINE 0.5% INJ-PF (5 MG/ML) 50 ML SDV SUBCUT PRN
[2019-07-26] MEDS ORDERED: PROPOFOL INJ 200 MG/20 ML VIAL IV ONE (06:58)
[2019-07-26] MEDS ORDERED: FENTANYL CITRATE INJ/PF 100 MCG/2 ML AMPUL ONE (06:58)
[2019-07-26] MEDS ORDERED: MIDAZOLAM 2 MG/2 ML INJ ONE (06:58)
[2019-07-26] MEDS ORDERED: HYDROMORPHONE HCL INJ/PF 2 MG/ML AMPULE ONE (06:58)
[2019-07-26] MEDS ORDERED: LIDOCAINE 2% INJ (20 MG/ML) 20 ML MDV ONE (06:59)
[2019-07-26] MEDS ORDERED: MEPERIDINE HCL/PF INJ 25 MG/1 ML DISP.SYRIN IV PRN (08:34)
[2019-07-26] MEDS ORDERED: DIPHENHYDRAMINE HCL 50 MG/ML VIAL IV PRN (08:34)
[2019-07-26] MEDS ORDERED: MORPHINE SULFATE 10 MG/ML INJ IV PRN (08:34)
[2019-07-26] MEDS ORDERED: OXYCODONE-ACETAMINOPHEN 5-325 MG TABLET PO PRN ×2 (08:34)
[2019-07-26] MEDS ORDERED: ONDANSETRON HCL INJ/PF 4 MG/2 ML SDV IV PRN ×2 (08:34→09:27)
[2019-07-26] MEDS ORDERED: FENTANYL CITRATE INJ/PF 100 MCG/2 ML AMPUL IV PRN ×3 (08:34)
[2019-07-26] MEDS ORDERED: EPHEDRINE SULFATE INJ 50 MG/1 ML AMPULE ONE (09:08)
[2019-07-26] MEDS ORDERED: BUPIVACAINE HCL 0.5%-EPI 1:200000 INJ/PF 30 ML VIAL ONE (09:15)
--- NOTE | 2019-07-26 09:45 | Operative Report ---
Nonrecallable Operative Report DATE OF SURGERY: 07/26/19 PREOPERATIVE DIAGNOSIS: Diaphragmatic hernia POSTOPERATIVE DIAGNOSIS: Diaphragmatic hernia OPERATION: For scopic diaphragmatic hernia repair SURGEON: PACO CLARK 1ST PON[employer]ESS OPERATOR: ONDINA CARBAJAL ANESTHESIA: GA TISSUE REMOVED OR ALTERED: None COMPLICATIONS: None ESTIMATED BLOOD LOSS: 20 cc INTRAOPERATIVE FINDINGS: See note PROCEDURE: Patient was brought to the operating room and awake and alert in stable c ondition placed on the operating table supine position induced under general anesthesia and intubated. After appropriate timeout and site verification the varies needle was placed into the umbilicus and the abdomen was insufflated with 6 L of CO2 gas. In infraumbilical 10 mm decision was made with a 15 blade and a 10 mm port placed in the abdominal cavity intra-abdominal visualization revealed no evidence of a varies needle or trocar injury. Then under direct vision the other ports were placed a 10 mm in the left upper quadrant 5 mm in the right upper quadrant and another 5 mm in the left abdominal wall and another 5 mm on the right abdominal wall. intraoperative visualization initially did not see the stomach it was totally incarcerated into the posterior mediastinum through the hiatus. There was a very large hiatal defect. We began our dissection by retrying to reduce the stomach it still was fixed in the posterior mediastinum with adhesions and these were taken down with LigaSure device. We are eventually able to identify the right slip of the parvin and we dissected the hernia sac off of that inferiorly and posteriorly until we reached the end of the sac and then with careful mobilization we were able to identify the caudate lobe of the liver and then traced that up to the posterior portion of the diaphragmatic hiatus. We then turned attention to the left side we freed the fundus up from the posterior portion of the diaphragm by taking down the short gastric vessels with the LigaSure device to completely move mobilized the left side of the stomach at the angle of Hiss. We then able to come around the esophagus posteriorly and and sling it with a [place] drain and then use that for traction. I then mobilized the esophagus up into the posterior mediastinum to the about the level of the azygos vein to allow the distal esophagus to easily drop back into the abdominal cavity with no tension. We then closed the posterior hiatus with interrupted placed 0 Ethibond sutures approximately 8-10 sutures were were placed to close the hiatus posteriorly around the esophagus. This led to a fairly snug fit without too much tension on the hiatus. We then used a piece of [place] a mesh and placed that into the abdominal cavity and surrounding the esophagus with an intact to the diaphragm with absorber tacks. To buttress the repair. I did not feel that the patient needed a fundoplication as he did not have any significant reflux preoperatively and the esophagus was lying well within the abdominal cavity for approximately 4 to 6 cm without any tension.. We then remove the Rachel drain checked for hemostasis it was intact remove the previously placed NG tube reduce the pneumoperitoneum closed the 10 mm fascial defects with 0 Vicryl in the fashion and closed all 4 skin incisions with intracuticular 4-0 Biosyn Steri-Strips completed the procedure estimated blood loss was less than 20 cc sponge needle counts were correct x2 the patient was awakened in the operating extubated transferred recovery in stable condition no complications Ondina CARMONA was present for the entire case for help with wound retraction wound closure
[2019-07-26] MEDS: FAMOTIDINE INJ/PF 20 MG/2 ML SDV IV SCH ×2 (11:41→21:22)
[2019-07-26] MEDS: MORPHINE SULFATE 10 MG/ML INJ IV PRN ×3 (11:49→20:33)
[2019-07-26] MEDS ORDERED: SUCCINYLCHOLINE CHLORIDE INJ 200 MG/10 ML VIAL ONE (11:53)
[2019-07-26] MEDS ORDERED: PHENYLEPHRINE HCL INJ/PF 10 MG/1 ML SDV ONE (11:53)
[2019-07-26] MEDS ORDERED: DEXAMETHASONE SOD PHOSPHATE INJ 4 MG/1 ML VIAL ONE (11:53)
[2019-07-26] MEDS ORDERED: KETOROLAC TROMETHAMINE 60 MG/2 ML SDV ONE (11:53)
[2019-07-26] MEDS ORDERED: GLYCOPYRROLATE 1 MG/5 ML VIAL ONE (11:53)
[2019-07-26] MEDS ORDERED: NEOSTIGMINE METHYLSULFATE 10 MG/10 ML VIAL ONE (11:53)
[2019-07-26] MEDS ORDERED: ROCURONIUM BROMIDE INJ 50 MG/5 ML VIAL IV ONE (11:53)
[2019-07-26] MEDS ORDERED: ONDANSETRON HCL INJ/PF 4 MG/2 ML SDV ONE (11:53)
[2019-07-26] MEDS: POTASSI CL 20 MEQ/1/2NS 1L 20 MEQ/1,000 ML RTUINJ IV PRN ×2 (11:54→20:33)
[2019-07-26] MEDS: HEPARIN SOD (PORCINE) 5,000 UNIT/ML 1 ML VIAL SUBCUT SCH ×2 (13:27→21:22)
[2019-07-26] MEDS ORDERED: INFLUENZA QUAD (6MOS+) 2019-20 VAC 0.5 ML SYR IM ONE (13:30)
[2019-07-27] MEDS: MORPHINE SULFATE 10 MG/ML INJ IV PRN ×3 (00:25→13:13)
[2019-07-27 04:50] LABS: ABSOLUTE MONOCYTES (AUTO) 0.8 10^3/uL (0.1-1.4); ABSOLUTE NEUT (AUTO) 6.6 10^3/uL (1.7-8.2); BASOPHILS % (AUTO) 0.2 % (0-2); EOSINOPHILS % (AUTO) 0.2 % (0-6); HEMATOCRIT 34.4 % (37.9-51.0); HEMOGLOBIN 11.5 g/dL (13.5-17.0); MEAN CORPUSCULAR HEMOGLOBIN 27.8 pg (27.0-33.4); MEAN CORPUSCULAR HGB CONC 33.5 g/dL (32.0-36.0); MEAN CORPUSCULAR VOLUME 83 fl (80-97); MONOCYTES % (AUTO) 9.3 % (3-13); PLATELET COUNT 215 10^3/uL (150-450); RED BLOOD COUNT 4.14 10^6/uL (4.35-5.55); RED CELL DISTRIBUTION WIDTH 18.8 % (11.5-14.0); SEGMENTED NEUTROPHILS % (AUTO) 78.3 % (42-78); TOTAL CELLS COUNTED % (AUTO) 100 %; WHITE BLOOD COUNT 8.5 10^3/uL (4.0-10.5)
[2019-07-27 05:03] LABS: ANION GAP 8 (5-19); BLOOD UREA NITROGEN 13 mg/dL (7-20); CALCIUM 8.8 mg/dL (8.4-10.2); CARBON DIOXIDE 27 mmol/L (22-30); CHLORIDE 94 mmol/L (98-107); GLUCOSE 86 mg/dL (75-110); POTASSIUM 4.3 mmol/L (3.6-5.0)
[2019-07-27 05:10] LABS: HYPOCHROMASIA SLIGHT; OVALOCYTES 1+; PLATELET COMMENT ADEQUATE
[2019-07-27] MEDS: HEPARIN SOD (PORCINE) 5,000 UNIT/ML 1 ML VIAL SUBCUT SCH (06:45)
[2019-07-27] MEDS: POTASSI CL 20 MEQ/1/2NS 1L 20 MEQ/1,000 ML RTUINJ IV PRN (06:46)
--- NOTE | 2019-07-27 08:40 | PDOC DISCHARGE SUMMARY ---
General - Admit/Disc Date/PCP Admission Date/Primary Care Provider: 07/26/19 09:27 KRISTINE PINO Discharge Date: 07/27/19 - Discharge Diagnosis Final Diagnosis: diagphragmatic hernia. - Assessment Summary: Patient underwent laparoscopic repair of a diaphragmatic hernia on 07/26/2019.He tolerated the procedure well and was monitored overnight postoperatively.This morning he is afebrile with stable vital signs tolerating a full liquid diet feels well minimal abdominal pain and ready for discharge home today.He will be given an appointment and 7 to 10 days postoperatively for follow-up. - Additional Information Resuscitation Status: Full Code Discharge Diet: As Tolerated, Full Liquids Discharge Activity: Activity As Tolerated, No Lifting Over 10 Pounds Referrals: NATALIYA HURTADO PA [Primary Care Provider] - Home Medications: Atorvastatin Calcium [Lipitor 20 mg Tablet] 20 mg PO QHS 04/13/18 Hydrochlorothiazide 25 mg PO QHS 04/13/18 Levothyroxine Sodium 1 tab PO DAILY 04/13/18 Lisinopril 20 mg PO DAILY 04/13/18 Metoprolol Succinate 25 mg PO DAILY 04/13/18 Omeprazole 40 mg PO BID 04/13/18 Ibuprofen 800 mg PO BID 04/18/18 History of Present Illiness History of Present Illness: ABHIJIT NORIEGA SR is a 69 year old male Physical Exam Vital Signs: Temp Pulse Resp BP Pulse Ox 98.2 F 76 18 129/57 H 95 07/27/19 00:00 07/27/19 00:00 07/27/19 00:00 07/27/19 00:00 07/27/19 00:00 Intake & Output 07/26/19 07/27/19 07/28/19 06:59 06:59 06:59 Intake Total 4643 Output Total 170 Balance 4473 Weight 81.65 kg 82.9 kg Results Laboratory Results: WBC 8.5 10^3/uL (4.0-10.5) 07/27/19 03:32 RBC 4.14 10^6/uL (4.35-5.55) L 07/27/19 03:32 Hgb 11.5 g/dL (13.5-17.0) L 07/27/19 03:32 Hct 34.4 % (37.9-51.0) L 07/27/19 03:32 MCV 83 fl (80-97) 07/27/19 03:32 MCH 27.8 pg (27.0-33.4) 07/27/19 03:32 MCHC 33.5 g/dL (32.0-36.0) 07/27/19 03:32 RDW 18.8 % (11.5-14.0) H 07/27/19 03:32 Plt Count 215 10^3/uL (150-450) 07/27/19 03:32 Lymph % (Auto) 12.0 % (13-45) L 07/27/19 03:32 Mclennan % (Auto) 9.3 % (3-13) 07/27/19 03:32 Eos % (Auto) 0.2 % (0-6) 07/27/19 03:32 Baso % (Auto) 0.2 % (0-2) 07/27/19 03:32 Absolute Neuts (auto) 6.6 10^3/uL (1.7-8.2) 07/27/19 03:32 Absolute Lymphs (auto) 1.0 10^3/uL (0.5-4.7) 07/27/19 03:32 Absolute Monos (auto) 0.8 10^3/uL (0.1-1.4) 07/27/19 03:32 Absolute Eos (auto) 0.0 10^3/uL (0.0-0.6) 07/27/19 03:32 Absolute Basos (auto) 0.0 10^3/uL (0.0-0.2) 07/27/19 03:32 Seg Neutrophils % 78.3 % (42-78) H 07/27/19 03:32 Large Platelets PRESENT 07/23/19 11:40 Platelet Comment ADEQUATE 07/27/19 03:32 Hypochromasia SLIGHT 07/27/19 03:32 Poikilocytosis SLIGHT 07/23/19 11:40 Anisocytosis 2+ 07/23/19 11:40 Ovalocytes 1+ 07/27/19 03:32 Sodium 128.8 mmol/L (137-145) L 07/27/19 03:32 Potassium 4.3 mmol/L (3.6-5.0) 07/27/19 03:32 Chloride 94 mmol/L (98-107) L 07/27/19 03:32 Carbon Dioxide 27 mmol/L (22-30) 07/27/19 03:32 Anion Gap 8 (5-19) 07/27/19 03:32 BUN 13 mg/dL (7-20) 07/27/19 03:32 Creatinine 0.52 mg/dL (0.52-1.25) 07/27/19 03:32 Est GFR ( Amer) > 60 (>60) 07/27/19 03:32 Est GFR (MDRD) Non-Af > 60 (>60) 07/27/19 03:32 Glucose 86 mg/dL (75-110) 07/27/19 03:32 POC Glucose 75 mg/dL (70-110) 07/26/19 06:52 Calcium 8.8 mg/dL (8.4-10.2) 07/27/19 03:32
[2019-07-27] MEDS: FAMOTIDINE INJ/PF 20 MG/2 ML SDV IV SCH (10:33)
[2019-07-27 14:12] VITALS: BP 129/57
== END 2019-07-27 14:38 | disposition home or self-care (01) ==
LOC: OROUT 05:24 → 4W 09:27
PROVIDERS: ADMIT Surgery; ATTEND Surgery
PROC: 0BUT4JZ Supplement Diaphragm with Synthetic Substitute, Percutaneous Endoscopic Approach (ICD-10-PCS; principal; 2019-07-26 07:30)
PROC: 3E02340 Introduction of Influenza Vaccine into Muscle, Percutaneous Approach (ICD-10-PCS; 2019-07-27)
DX: K44.0 Diaphragmatic hernia with obstruction, without gangrene (principal); K21.9 Gastro-esophageal reflux disease without esophagitis; I10 Essential (primary) hypertension; E03.9 Hypothyroidism, unspecified; G83.89 Other specified paralytic syndromes; T14.90XS Injury, unspecified, sequela; G62.9 Polyneuropathy, unspecified; Z23 Encounter for immunization; Z86.79 Personal history of other diseases of the circulatory system; Z79.899 Other long term (current) drug therapy
CPT/HCPCS: 93005; 36415 ×2; 82962; 85025 ×2; 80048 ×2; 90686; 94799; 93010; 00756; 43282; G0378 ×2; C1781; J2250; J3490 ×5; J1644 ×2; J0690; J1100; J3480 ×2; J1885; J2270 ×2; J2710; J1170; J2370; J0330; J2405; J7060; J2704; S0028 ×2; 756; J3010

== ENCOUNTER → 2019-08-28 | Outpatient (CLI) | payer MEDICARE ==
[2019-08-28 15:49] LABS: ABSOLUTE EOSINOPHILS # (AUTO) 0.1 10^3/uL (0.0-0.6); ABSOLUTE LYMPHOCYTES (AUTO) 0.9 10^3/uL (0.5-4.7); ABSOLUTE MONOCYTES (AUTO) 0.5 10^3/uL (0.1-1.4); ABSOLUTE NEUT (AUTO) 6.2 10^3/uL (1.7-8.2); BASOPHILS % (AUTO) 0.6 % (0-2); EOSINOPHILS % (AUTO) 0.9 % (0-6); HEMATOCRIT 39.8 % (37.9-51.0); HEMOGLOBIN 13.4 g/dL (13.5-17.0); LYMPHOCYTES % (AUTO) 11.8 % (13-45); MEAN CORPUSCULAR HEMOGLOBIN 29.2 pg (27.0-33.4); MEAN CORPUSCULAR HGB CONC 33.7 g/dL (32.0-36.0); MEAN CORPUSCULAR VOLUME 87 fl (80-97); MONOCYTES % (AUTO) 6.7 % (3-13); PLATELET COUNT 302 10^3/uL (150-450); RED BLOOD COUNT 4.59 10^6/uL (4.35-5.55); RED CELL DISTRIBUTION WIDTH 14.9 % (11.5-14.0); TOTAL CELLS COUNTED % (AUTO) 100 %; WHITE BLOOD COUNT 7.8 10^3/uL (4.0-10.5)
[2019-08-28 16:14] LABS: ALBUMIN 4.1 g/dL (3.5-5.0); ALKALINE PHOSPHATASE 79 U/L (38-126); ANION GAP 8 (5-19); ASPARTATE AMINO TRANSFERASE 23 U/L (17-59); BILIRUBIN,DIRECT 0.1 mg/dL (0.0-0.4); BILIRUBIN,TOTAL 0.4 mg/dL (0.2-1.3); BLOOD UREA NITROGEN 19 mg/dL (7-20); CALCIUM 9.5 mg/dL (8.4-10.2); CARBON DIOXIDE 33 mmol/L (22-30); CHLORIDE 89 mmol/L (98-107); GLUCOSE 125 mg/dL (75-110); POTASSIUM 4.4 mmol/L (3.6-5.0); TOTAL PROTEIN 7.1 g/dL (6.3-8.2)
[2019-08-28 16:25] LABS: ERYTHROCYTE SEDIMENTATION RATE 19 mm/hr (0-20)
--- NOTE | 2019-08-28 17:41 | RADIOLOGY REPORT (SQ) ---
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 NUMBER OF VIEWS: One view TECHNIQUE: AP Pelvis LIMITATIONS: None. FINDINGS: MINERALIZATION: Normal. HIPS: No acute fracture or dislocation. No worrisome bone lesions. PELVIS AND SACRUM: No acute fracture or dislocation. No worrisome bone lesions. PUBIS AND ISCHIUM: No acute fracture. LOWER LUMBAR SPINE: No significant findings as visualized. SOFT TISSUES: No findings. OTHER: No other significant finding. IMPRESSION: NEGATIVE STUDY OF THE PELVIS. COMMENT: Pelvic fractures are often occult on plain radiographs. If strong clinical suspicion for f racture, recommend CT or MR. TECHNICAL DOCUMENTATION: JOB ID: [id number] [employer]- All Rights Reserved Reading location - IP/workstation name: [email or web address]
--- NOTE | 2019-08-28 17:43 | RADIOLOGY REPORT (SQ) ---
EXAM DESCRIPTION: CHEST PA/LATERAL COMPLETED DATE/TIME: 08/28/2019 3:16 pm REASON FOR STUDY: PNEUMOTHORAX, UNSPECIFIED COMPARISON: 09/15/2018 EXAM PARAMETERS: NUMBER OF VIEWS: two views TECHNIQUE: Digital Frontal and Lateral radiographic views of the chest acquired. RADIATION DOSE: NA LIMITATIONS: none FINDINGS: LUNGS AND PLEURA: No opacities, masses or pneumothorax. No pleural effusion. MEDIASTINUM AND HILAR STRUCTURES: Hiatal hernia. HEART AND VASCULAR STRUCTURES: Heart normal size. No evidence for failure. BONES: No acute findings. HARDWARE: None in the chest. OTHER: No other significant finding. IMPRESSION: Hiatal hernia. No acute finding. TECHNICAL DOCUMENTATION: JOB ID: [id number] [employer]- All Rights Reserved Reading location - IP/workstation name: [email or web address]
== END ==
LOC: OD 14:38
PROVIDERS: ATTEND Nurse Practitioner Family
DX: J93.9 Pneumothorax, unspecified (principal); K44.9 Diaphragmatic hernia without obstruction or gangrene; E11.622 Type 2 diabetes mellitus with other skin ulcer; L89.154 Pressure ulcer of sacral region, stage 4
CPT/HCPCS: 36415; 71046; 72170; 80053; 83036; 85025; 85652; 86140

== ENCOUNTER → 2019-09-01 | Outpatient (CLI) | payer MEDICARE ==
--- NOTE | 2019-09-02 15:47 | RADIOLOGY REPORT (SQ) ---
EXAM DESCRIPTION: MRI PELVIS COMBO COMPLETED DATE/TIME: 09/01/2019 1:06 pm REASON FOR STUDY: (L89.154)PRESSURE ULCER OF SACRAL REGION, STAGE 4 L89.154 PRESSURE ULCER OF [place] L REGION, STAGE 4 COMPARISON: Plain radiograph TECHNIQUE: Multiplanar imaging of the pelvis and sacrum to include T1-weighted, postcontrast T1-weig hted, and T2-weighted images. CONTRAST TYPE AND DOSE: 15 mL Dotarem. RENAL FUNCTION: Not indicated. ACR Type II contrast agent associated with few, if any, unconfounded cases of NSF LIMITATIONS: None. FINDINGS: BONE MARROW: The 5 sacral segments are not within normal limits without evidence for osteo myelitis. No visualization of the coccyx. Extensive edema in expected location of the coccyx. SOFT TISSUES: Soft tissue defect just distal to the 5th sacral segment. Extensive enhancement. No f ocal abscess. OTHER: No other significant finding. IMPRESSION: Presumed osteomyelitis of the coccyx. Possibly debrided previously. The sacral segments are intact. Extensive soft tissue edema with enhancement and soft tissue defect but no focal abscess. TECHNICAL DOCUMENTATION: JOB ID: [id number] [employer]- All Rights Reserved Reading location - IP/workstation name: [email or web address]
== END ==
LOC: RAD 11:22
PROVIDERS: ATTEND Nurse Practitioner Family
DX: L89.154 Pressure ulcer of sacral region, stage 4 (principal)
CPT/HCPCS: 72197

== ENCOUNTER → 2019-09-25 | Outpatient (CLI) | payer MEDICARE ==
--- NOTE | 2019-09-25 10:44 | RADIOLOGY REPORT (SQ) ---
EXAM DESCRIPTION: PELVIS AP COMPLETED DATE/TIME: 09/25/2019 10:15 am REASON FOR STUDY: PRESSURE ULCER OF SACRAL REGION, STAGE 4 L89.154 PRESSURE ULCER OF SACRAL REGION, STAGE 4 M86.38 CHRONIC MULTIFOCAL OSTEOMYELITIS, OTHER SITE COMPARISON: 08/28/2019 NUMBER OF VIEWS: One view TECHNIQUE: AP Pelvis LIMITATIONS: None. FINDINGS: MINERALIZATION: Normal. HIPS: No acute fracture or dislocation. No worrisome bone lesions. PELVIS AND SACRUM: No acute fracture or dislocation. No worrisome bone lesions. PUBIS AND ISCHIUM: No acute fracture. LOWER LUMBAR SPINE: No significant findings as visualized. SOFT TISSUES: No findings. OTHER: No other significant finding. IMPRESSION: NEGATIVE STUDY OF THE PELVIS. COMMENT: Pelvic fractures are often occult on plain radiographs. If strong clinical suspicion for f racture, recommend CT or MR. TECHNICAL DOCUMENTATION: JOB ID: [id number] [facility]- All Rights Reserved Reading location - IP/workstation name: [email or web address]
[2019-09-25 11:05] LABS: ABSOLUTE EOSINOPHILS # (AUTO) 0.2 10^3/uL (0.0-0.6); ABSOLUTE LYMPHOCYTES (AUTO) 1.3 10^3/uL (0.5-4.7); ABSOLUTE MONOCYTES (AUTO) 0.5 10^3/uL (0.1-1.4); ABSOLUTE NEUT (AUTO) 3.7 10^3/uL (1.7-8.2); BASOPHILS % (AUTO) 0.8 % (0-2); EOSINOPHILS % (AUTO) 2.9 % (0-6); HEMATOCRIT 37.2 % (37.9-51.0); HEMOGLOBIN 12.4 g/dL (13.5-17.0); LYMPHOCYTES % (AUTO) 22.4 % (13-45); MEAN CORPUSCULAR HEMOGLOBIN 29.4 pg (27.0-33.4); MEAN CORPUSCULAR HGB CONC 33.4 g/dL (32.0-36.0); MEAN CORPUSCULAR VOLUME 88 fl (80-97); MONOCYTES % (AUTO) 9.1 % (3-13); PLATELET COUNT 242 10^3/uL (150-450); RED BLOOD COUNT 4.24 10^6/uL (4.35-5.55); RED CELL DISTRIBUTION WIDTH 15.5 % (11.5-14.0); SEGMENTED NEUTROPHILS % (AUTO) 64.8 % (42-78); TOTAL CELLS COUNTED % (AUTO) 100 %; WHITE BLOOD COUNT 5.6 10^3/uL (4.0-10.5)
[2019-09-25 11:36] LABS: ALBUMIN 4.1 g/dL (3.5-5.0); ALKALINE PHOSPHATASE 70 U/L (38-126); ANION GAP 8 (5-19); ASPARTATE AMINO TRANSFERASE 30 U/L (17-59); BILIRUBIN,DIRECT 0.1 mg/dL (0.0-0.4); BILIRUBIN,TOTAL 0.3 mg/dL (0.2-1.3); BLOOD UREA NITROGEN 15 mg/dL (7-20); CALCIUM 9.5 mg/dL (8.4-10.2); CARBON DIOXIDE 32 mmol/L (22-30); CHLORIDE 94 mmol/L (98-107); GLUCOSE 71 mg/dL (75-110); POTASSIUM 4.2 mmol/L (3.6-5.0)
[2019-09-25 11:38] LABS: C-REACTIVE PROTEIN < 5.0 mg/L (<10.0)
[2019-09-25 11:45] LABS: ERYTHROCYTE SEDIMENTATION RATE 19 mm/hr (0-20)
== END ==
LOC: WC 09:38
PROVIDERS: ATTEND Nurse Practitioner Family
DX: L89.154 Pressure ulcer of sacral region, stage 4 (principal); M86.38 Chronic multifocal osteomyelitis, other site
CPT/HCPCS: 36415; 72170; 80053; 85025; 85652; 86140

== ENCOUNTER → 2019-10-31 | Outpatient (CLI) | payer MEDICARE ==
--- NOTE | 2019-10-31 17:10 | RADIOLOGY REPORT (SQ) ---
EXAM DESCRIPTION: PELVIS AP COMPLETED DATE/TIME: 10/31/2019 4:35 pm REASON FOR STUDY: PRESSURE ULCER OF SACRAL REGION, STAGE 4 L89.154 PRESSURE ULCER OF SACRAL REGION, STAGE 4 M86.38 CHRONIC MULTIFOCAL OSTEOMYELITIS, OTHER SITE COMPARISON: 09/25/2019 NUMBER OF VIEWS: One view TECHNIQUE: AP Pelvis LIMITATIONS: None. FINDINGS: MINERALIZATION: Normal. HIPS: No acute fracture or dislocation. No worrisome bone lesions. PELVIS AND SACRUM: No acute fracture or dislocation. No worrisome bone lesions. No evidence of bone destruction or osteomyelitis. PUBIS AND ISCHIUM: No acute fracture. LOWER LUMBAR SPINE: No significant findings as visualized. SOFT TISSUES: No findings. OTHER: No other significant finding. IMPRESSION: NEGATIVE STUDY OF THE PELVIS. COMMENT: Pelvic fractures are often occult on plain radiographs. If strong clinical suspicion for f racture, recommend CT or MR. TECHNICAL DOCUMENTATION: JOB ID: [id number] [employer]- All Rights Reserved Reading location - IP/workstation name: [email or web address]
[2019-10-31 17:13] LABS: ABSOLUTE EOSINOPHILS # (AUTO) 0.2 10^3/uL (0.0-0.6); ABSOLUTE MONOCYTES (AUTO) 0.5 10^3/uL (0.1-1.4); ABSOLUTE NEUT (AUTO) 3.9 10^3/uL (1.7-8.2); BASOPHILS % (AUTO) 0.7 % (0-2); EOSINOPHILS % (AUTO) 2.8 % (0-6); HEMATOCRIT 39.7 % (37.9-51.0); HEMOGLOBIN 13.7 g/dL (13.5-17.0); LYMPHOCYTES % (AUTO) 17.5 % (13-45); MEAN CORPUSCULAR HEMOGLOBIN 30.5 pg (27.0-33.4); MEAN CORPUSCULAR HGB CONC 34.4 g/dL (32.0-36.0); MEAN CORPUSCULAR VOLUME 89 fl (80-97); MONOCYTES % (AUTO) 8.2 % (3-13); PLATELET COUNT 203 10^3/uL (150-450); RED BLOOD COUNT 4.48 10^6/uL (4.35-5.55); RED CELL DISTRIBUTION WIDTH 16.8 % (11.5-14.0); SEGMENTED NEUTROPHILS % (AUTO) 70.8 % (42-78); TOTAL CELLS COUNTED % (AUTO) 100 %; WHITE BLOOD COUNT 5.5 10^3/uL (4.0-10.5)
[2019-10-31 17:38] LABS: ALBUMIN 4.4 g/dL (3.5-5.0); ALKALINE PHOSPHATASE 67 U/L (38-126); ANION GAP 10 (5-19); ASPARTATE AMINO TRANSFERASE 31 U/L (17-59); BILIRUBIN,DIRECT 0.2 mg/dL (0.0-0.4); BILIRUBIN,TOTAL 0.5 mg/dL (0.2-1.3); BLOOD UREA NITROGEN 17 mg/dL (7-20); CALCIUM 9.4 mg/dL (8.4-10.2); CARBON DIOXIDE 31 mmol/L (22-30); CHLORIDE 91 mmol/L (98-107); GLUCOSE 117 mg/dL (75-110); POTASSIUM 4.8 mmol/L (3.6-5.0); TOTAL PROTEIN 7.1 g/dL (6.3-8.2)
[2019-10-31 17:39] LABS: C-REACTIVE PROTEIN < 5.0 mg/L (<10.0)
[2019-10-31 18:15] LABS: ERYTHROCYTE SEDIMENTATION RATE 9 mm/hr (0-20)
== END ==
LOC: WC 16:09
PROVIDERS: ATTEND Nurse Practitioner Family
DX: M86.38 Chronic multifocal osteomyelitis, other site (principal); L89.154 Pressure ulcer of sacral region, stage 4
CPT/HCPCS: 36415; 72170; 80053; 85025; 85652; 86140

== ENCOUNTER → 2020-01-30 | Outpatient (CLI) | payer MEDICARE ==
--- NOTE | 2020-01-30 12:18 | RADIOLOGY REPORT (SQ) ---
EXAM DESCRIPTION: PELVIS AP IMAGES COMPLETED DATE/TIME: 01/30/2020 12:09 pm REASON FOR STUDY: PRESSURE ULCER OF SACRAL REGION, STAGE 4 L89.154 PRESSURE ULCER OF SACRAL REGION, STAGE 4 COMPARISON: 10/31/2019, 09/25/2019 NUMBER OF VIEWS: One view TECHNIQUE: AP Pelvis LIMITATIONS: None. FINDINGS: MINERALIZATION: Normal. HIPS: No acute fracture or dislocation. No worrisome bone lesions. PELVIS AND SACRUM: No acute fracture or dislocation. No worrisome bone lesions. PUBIS AND ISCHIUM: No acute fracture. LOWER LUMBAR SPINE: No significant findings as visualized. SOFT TISSUES: No findings. OTHER: No other significant finding. IMPRESSION: NEGATIVE STUDY OF THE PELVIS. COMMENT: Pelvic fractures are often occult on plain radiographs. If strong clinical suspicion for f racture, recommend CT or MR. TECHNICAL DOCUMENTATION: JOB ID: [id number] [employer]- All Rights Reserved Reading location - IP/workstation name: [email or web address]
[2020-01-30 12:56] LABS: ABSOLUTE EOSINOPHILS # (AUTO) 0.2 10^3/uL (0.0-0.6); ABSOLUTE MONOCYTES (AUTO) 0.6 10^3/uL (0.1-1.4); ABSOLUTE NEUT (AUTO) 4.1 10^3/uL (1.7-8.2); BASOPHILS % (AUTO) 0.4 % (0-2); EOSINOPHILS % (AUTO) 3.1 % (0-6); HEMATOCRIT 39.6 % (37.9-51.0); LYMPHOCYTES % (AUTO) 17.3 % (13-45); MEAN CORPUSCULAR HEMOGLOBIN 32.4 pg (27.0-33.4); MEAN CORPUSCULAR HGB CONC 35.4 g/dL (32.0-36.0); MEAN CORPUSCULAR VOLUME 92 fl (80-97); MONOCYTES % (AUTO) 9.7 % (3-13); PLATELET COUNT 233 10^3/uL (150-450); RED BLOOD COUNT 4.32 10^6/uL (4.35-5.55); RED CELL DISTRIBUTION WIDTH 13.8 % (11.5-14.0); SEGMENTED NEUTROPHILS % (AUTO) 69.5 % (42-78); TOTAL CELLS COUNTED % (AUTO) 100 %; WHITE BLOOD COUNT 5.9 10^3/uL (4.0-10.5)
[2020-01-30 13:08] LABS: POTASSIUM 4.1 mmol/L (3.6-5.0)
[2020-01-30 13:12] LABS: ALBUMIN 4.5 g/dL (3.5-5.0); ALKALINE PHOSPHATASE 61 U/L (38-126); ANION GAP 9 (5-19); ASPARTATE AMINO TRANSFERASE 30 U/L (17-59); BILIRUBIN,DIRECT 0.2 mg/dL (0.0-0.4); BILIRUBIN,TOTAL 0.3 mg/dL (0.2-1.3); BLOOD UREA NITROGEN 17 mg/dL (7-20); CALCIUM 9.2 mg/dL (8.4-10.2); CARBON DIOXIDE 31 mmol/L (22-30); CHLORIDE 86 mmol/L (98-107); GLUCOSE 76 mg/dL (75-110); TOTAL PROTEIN 7.3 g/dL (6.3-8.2)
[2020-01-30 13:13] LABS: C-REACTIVE PROTEIN < 5.0 mg/L (<10.0)
[2020-01-30 13:36] LABS: ERYTHROCYTE SEDIMENTATION RATE 9 mm/hr (0-20)
== END ==
LOC: WC 11:40
PROVIDERS: ATTEND Nurse Practitioner Family
DX: L89.154 Pressure ulcer of sacral region, stage 4 (principal)
CPT/HCPCS: 36415; 72170; 80053; 85025; 85652; 86140

== ENCOUNTER → 2020-04-09 | Outpatient (CLI) | payer MEDICARE ==
[2020-04-09 15:29] LABS: HEMOGLOBIN 14.1 g/dL (13.5-17.0); MEAN CORPUSCULAR HEMOGLOBIN 32.8 pg (27.0-33.4); MEAN CORPUSCULAR HGB CONC 35.2 g/dL (32.0-36.0); MEAN CORPUSCULAR VOLUME 93 fl (80-97); PLATELET COUNT 235 10^3/uL (150-450); RED BLOOD COUNT 4.28 10^6/uL (4.35-5.55); RED CELL DISTRIBUTION WIDTH 13.7 % (11.5-14.0); WHITE BLOOD COUNT 6.1 10^3/uL (4.0-10.5)
[2020-04-09 15:44] LABS: ALBUMIN 4.7 g/dL (3.5-5.0); ALKALINE PHOSPHATASE 79 U/L (38-126); ANION GAP 9 (5-19); ASPARTATE AMINO TRANSFERASE 31 U/L (17-59); BILIRUBIN,DIRECT 0.1 mg/dL (0.0-0.4); BILIRUBIN,TOTAL 0.6 mg/dL (0.2-1.3); BLOOD UREA NITROGEN 16 mg/dL (7-20); CALCIUM 9.5 mg/dL (8.4-10.2); CARBON DIOXIDE 30 mmol/L (22-30); CHLORIDE 88 mmol/L (98-107); GLUCOSE 84 mg/dL (75-110); POTASSIUM 5.2 mmol/L (3.6-5.0); TOTAL PROTEIN 7.5 g/dL (6.3-8.2)
[2020-04-09 15:51] LABS: PREALBUMIN 26.8 mg/dL (17.6-36.0)
== END ==
LOC: OD 11:58
DX: S31.000S Unspecified open wound of lower back and pelvis without penetration into retroperitoneum, sequela (principal); X58.XXXS Exposure to other specified factors, sequela; Z79.899 Other long term (current) drug therapy
CPT/HCPCS: 36415; 80053; 83036; 84134; 85027

== ENCOUNTER 2020-08-27 19:58 | Emergency (ER) | payer MEDICARE ==
--- NOTE | 2020-08-27 20:32 | ER Document Report ---
ED Medical Screen (RME) - General Chief Complaint: Urinary Retention Stated Complaint: UNABLE TO URINATE GROIN PAIN Time Seen by Provider: 08/27/20 20:23 Primary Care Provider: ARIES ALBARRAN [Primary Care Provider] - Follow up as needed Mode of Arrival: Wheelchair Information source: Patient Notes: 70-year-old male presents to ED for complaint of urinary retention and dripping blood from his penis. Patient states he usually can urinate okay even though he is paralyzed from the waist down from a L2 no injury. He states today he is not urinated at all and he did pass some urine yesterday but since then he is just been dripping blood. He is alert oriented respirations regular nonlabored speaking in full sentences. He states he is in a lot of pain has a lot of pelvic pain but he cannot feel his legs but he can feel his pelvic and side. I have greeted and performed a rapid initial assessment of this patient. A comprehensive ED assessment and evaluation of the patient, analysis of test results and completion of medical decision making process will be conducted by an additional ED providers. TRAVEL OUTSIDE OF THE [place] IN LAST 30 DAYS: No - Related Data Allergies/Adverse Reactions: No Known Allergies Allergy (Verified 07/26/19 06:43) Past Medical History - Past Medical History Cardiac Medical History: Reports: Hx Hypertension Denies: Hx Coronary Artery Disease, Hx Heart Attack Pulmonary Medical History: Denies: Hx Asthma, Hx Bronchitis, Hx COPD, Hx Pneumonia Neurological Medical History: Denies: Hx Cerebrovascular Accident, Hx Seizures Renal/ Medical History: Denies: Hx Peritoneal Dialysis Musculoskeltal Medical History: Denies Hx Arthritis Psychiatric Medical History: Denies: Hx Depression Past Surgical History: Reports: Hx Orthopedic Surgery - back, bilateral feet - Immunizations Hx Diphtheria, Pertussis, Tetanus Vaccination: Yes Physical Exam - Vital signs Vitals: Temp 98.0 F 08/27/20 20:29 Course - Vital Signs Vital signs: Temp Pulse Resp BP Pulse Ox 98.0 F 72 22 H 151/73 H 100 08/27/20 20:33 08/27/20 20:33 08/27/20 20:33 08/27/20 20:33 08/27/20 20:33 Doctor's Discharge - Discharge Referrals: ARIES ALBARRAN [Primary Care Provider] - Follow up as needed
[2020-08-27 22:17] LABS: ABSOLUTE EOSINOPHILS # (AUTO) 0.2 10^3/uL (0.0-0.6); ABSOLUTE LYMPHOCYTES (AUTO) 1.2 10^3/uL (0.5-4.7); ABSOLUTE MONOCYTES (AUTO) 0.6 10^3/uL (0.1-1.4); ABSOLUTE NEUT (AUTO) 6.5 10^3/uL (1.7-8.2); BASOPHILS % (AUTO) 0.5 % (0-2); HEMATOCRIT 33.4 % (37.9-51.0); HEMOGLOBIN 11.6 g/dL (13.5-17.0); LYMPHOCYTES % (AUTO) 13.8 % (13-45); MEAN CORPUSCULAR HEMOGLOBIN 31.8 pg (27.0-33.4); MEAN CORPUSCULAR HGB CONC 34.8 g/dL (32.0-36.0); MEAN CORPUSCULAR VOLUME 91 fl (80-97); MONOCYTES % (AUTO) 7.5 % (3-13); PLATELET COUNT 244 10^3/uL (150-450); RED BLOOD COUNT 3.65 10^6/uL (4.35-5.55); RED CELL DISTRIBUTION WIDTH 14.5 % (11.5-14.0); SEGMENTED NEUTROPHILS % (AUTO) 76.2 % (42-78); TOTAL CELLS COUNTED % (AUTO) 100 %; WHITE BLOOD COUNT 8.5 10^3/uL (4.0-10.5)
[2020-08-27 22:22] LABS: INTERNATIONAL RATION (INR) 0.99; PROTHROMBIN TIME 13.3 SEC (11.4-15.4)
[2020-08-27 22:23] LABS: PARTIAL THROMBOPLASTIN TIME 37.6 SEC (23.5-35.8)
[2020-08-27 22:39] LABS: ALBUMIN 3.5 g/dL (3.5-5.0); ALKALINE PHOSPHATASE 82 U/L (38-126); ANION GAP 7 (5-19); ASPARTATE AMINO TRANSFERASE 22 U/L (17-59); BILIRUBIN,DIRECT 0.1 mg/dL (0.0-0.4); BILIRUBIN,TOTAL 0.3 mg/dL (0.2-1.3); BLOOD UREA NITROGEN 17 mg/dL (7-20); CALCIUM 8.9 mg/dL (8.4-10.2); CARBON DIOXIDE 28 mmol/L (22-30); CHLORIDE 90 mmol/L (98-107); GLUCOSE 103 mg/dL (75-110); POTASSIUM 3.8 mmol/L (3.6-5.0); TOTAL PROTEIN 5.9 g/dL (6.3-8.2)
[2020-08-27 23:05] LABS: APPEARANCE,URINE CLOUDY; BILIRUBIN,URINE NEGATIVE (NEGATIVE); GLUCOSE, URINE NEGATIVE (NEGATIVE); KETONES,URINE NEGATIVE (NEGATIVE); LEUKOCYTE ESTERASE,URINE NEGATIVE (NEGATIVE); NITRITE,URINE NEGATIVE (NEGATIVE); PROTEIN,URINE >=500 mg/dL (NEGATIVE); UROBILINOGEN,URINE NEGATIVE mg/dL (<2.0)
[2020-08-27 23:06] LABS: COLOR,URINE RED
[2020-08-27] MEDS ORDERED: OXYBUTYNIN CHLORIDE 5 MG TABLET PO ONE (23:44)
[2020-08-27] MEDS ORDERED: OXYCODONE-ACETAMINOPHEN 5-325 MG TABLET PO ONE (23:44)
[2020-08-28] MEDS ORDERED: NORMAL SALINE 1000 ML 1,000 ML IV ONE (01:06)
[2020-08-28] MEDS ORDERED: MORPHINE SULFATE 10 MG/ML INJ IV ONE ×2 (01:06→03:44)
[2020-08-28] MEDS ORDERED: ONDANSETRON HCL INJ/PF 4 MG/2 ML SDV IV ONE (01:06)
--- NOTE | 2020-08-28 01:13 | ER Document Report ---
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 Patient normally has no difficulty urinating and is able to urinate spontaneously without need straight cath. For 1 day prior to arrival patient unable to pass more than very scant amounts of dark maroon colored urine from urethra. Endorses pain in his groin but unable to fully localize. Patient denies ever having any urinary issues before, prior urinary retention, prostate history, unexplained weight loss, anticoagulation, bleeding diatheses, dizziness, shortness of breath, chest pain, fever, vomiting, bowel symptoms, syncope, cancer history, back pain (although would be poorly able to localize), trauma TRAVEL OUTSIDE OF THE [place] IN LAST 30 DAYS: No - Related Data Allergies/Adverse Reactions: No Known Allergies Allergy (Verified 07/26/19 06:43) Past Medical History - General Information source: Patient - Social History Smoking Status: Never Smoker Chew tobacco use (# tins/day): No Frequency of alcohol use: None Drug Abuse: None Family History: Reviewed & Not Pertinent Patient has homicidal ideation: No - Past Medical History Cardiac Medical History: Reports: Hx Hypertension Denies: Hx Coronary Artery Disease, Hx Heart Attack Pulmonary Medical History: Denies: Hx Asthma, Hx Bronchitis, Hx COPD, Hx Pneumonia Neurological Medical History: Denies: Hx Cerebrovascular Accident, Hx Seizures Renal/ Medical History: Denies: Hx Peritoneal Dialysis Musculoskeletal Medical History: Denies Hx Arthritis Psychiatric Medical History: Denies: Hx Depression Past Surgical History: Reports: Hx Orthopedic Surgery - back, bilateral feet - Immunizations Hx Diphtheria, Pertussis, Tetanus Vaccination: Yes Hx Pneumococcal Vaccination: 07/24/17 Review of Systems - Review of Systems Notes: REVIEW OF SYSTEMS: CONSTITUTIONAL : Denies fever, chills, or sweats. EENT: Denies recent cold/sinus symptoms, denies throat pain CARDIOVASCULAR: Denies chest pain, MANUEL RESPIRATORY: Denies cough, denies shortness of breath. GASTROINTESTINAL: Denies abdominal pain, nausea/vomiting. GENITOURINARY: + difficulty urinating, -painful urination. MUSCULOSKELETAL: Denies neck pain, back pain. SKIN: Denies rash or skin lesions. HEMATOLOGIC : Denies easy bruising or bleeding. LYMPHATIC: Denies swollen, enlarged glands. NEUROLOGICAL: Denies headache, denies change in gait. PSYCHIATRIC: Denies anxiety or stress or depression. Physical Exam - Vital signs Vitals: Temp 98.0 F 08/27/20 20:29 - Notes Notes: PHYSICAL EXAMINATION: GENERAL: Uncomfortable appearing but nontoxic-appearing elderly man lying in stretcher in no acute distress HEAD: Atraumatic, normocephalic. EYES: Pupils equal round and appropriate constriction, sclera anicteric, conjunctiva are normal. ENT: nares patent, moist mucous membranes. NECK/BACK: Normal range of motion, supple without lymphadenopathy, no spinal tenderness or deformity LUNGS: Breath sounds clear to auscultation bilaterally and equal. No wheezes rales or rhonchi. HEART: Regular rate and rhythm without murmurs ABDOMEN: Soft, nontender, no guarding, no masses, no CVAT : Normal external male genitalia, Hendricksno in place draining dark maroon urine without any gross clots, no bright red blood EXTREMITIES: No pitting, no cyanosis, no bony tenderness NEUROLOGICAL: Awake, alert, conversing appropriately, moves all extremities spontaneously. Full hip flexion intact in bilateral lower extremities, able to reposition in bed. PSYCH: Normal mood, normal affect. SKIN: Warm, Dry, normal turgor, healed skin graft on the sacrum without any tenderness or erythema Course - Re-evaluation Re-evalutation: 08/28/20 01:29 Urinary retention with dark blood in the Hendrickson, patient with persistent pain after Hendrickson placement and unable to localize. Obtain CT T and L-spine and CT abdomen pelvis to rule out masses or lytic lesions, assess bladder. Obtain CBC BMP to assess hemoglobin and renal function, patient mildly anemic with unknown baseline. Will control pain, wait for CT results, and see if bleeding s tabilizes. If not able to fully drain the bladder with Hendrickson or patient's hematuria persists we will have to transfer patient for urologic evaluation and start continuous bladder irrigation. Will continue to monitor. 08/28/20 04:48 Not able to achieve full bladder emptying even after bladder irrigation, patient continues to have very dark maroon opaque urine, patient requiring continuous bladder irrigation at this time and thus will require transfer to a facility with urologic service. Discussed case with Dr. Henson at [facility] who has accepted patient to [facility]. Patient otherwise has remained with stable vitals, has had about 1.5 L of Hendrickson output since Hendrickson was placed, will repeat CBC and BMP if transfer is delayed but not necessary at this time as patient's volume loss has not been significant he has had no change in his hemodynamic stability. 08/28/20 08:08 Patient had significantly increased pain after continuous bladder irrigation was started, I irrigated the bladder manually multiple times and was able to get bladder to fully drain before continuous bladder irrigation was restarted. Patiently currently has no pain. Patient waiting ambulance to be transported to [facility] which is where family prefer that patient be admitted to and they are in agreement with this plan. Patient's vitals have remained stable, patient remains appropriate for transfer at this time. - Vital Signs Vital signs: Temp Pulse Resp BP Pulse Ox 98.0 F 60 18 121/57 L 97 08/28/20 08:00 08/27/20 23:22 08/28/20 07:31 08/28/20 07:31 08/28/20 07:31 - Laboratory Result Diagrams: 08/27/20 22:00 08/27/20 22:00 Laboratory results interpreted by me: 08/27/20 08/27/20 08/27/20 22:00 22:00 22:00 RBC 3.65 L Hgb 11.6 L Hct 33.4 L RDW 14.5 H APTT 37.6 H Sodium 124.8 L Chloride 90 L Total Protein 5.9 L Urine Protein Urine Blood 08/27/20 22:00 RBC Hgb Hct RDW APTT Sodium Chloride Total Protein Urine Protein >=500 H Urine Blood MODERATE H Discharge - Discharge Clinical Impression: Urinary retention, Gross hematuria Disposition: [facility] Referrals: LOCALMD,NO [NO LOCAL MD] - Follow up as needed
--- NOTE | 2020-08-28 01:23 | RADIOLOGY REPORT (SQ) ---
CT thoracic spine without contrast on 08/28/2020 at 12:32 AM CLINICAL INDICATION: Paraplegic, back pain TECHNIQUE: Multiple axial images are obtained throughout the thoracic spine without the administration of contrast. Sagittal and coronal reformatted images are also performed and reviewed. This exam was performed according to our departmental dose-optimization program, which includes automated exposure control, adjustment of the mA and/or kV according to patient size and/or use of iterative reconstruction technique. Total DLP is 1019.88 mGy*cm. COMPARISON: CT abdomen and pelvis from 07/04/2019 FINDINGS: The patient's old L1 burst fracture is partially imaged on this exam. The patient is status post T12 laminectomy. Mild degenerative disc disease is noted in the lower thoracic spine. Reformatted images reveal normal alignment of the thoracic spine. There are no acute fracture lines. At the T10-11 level, calcified disc osteophyte complex produces mild canal stenosis and mild right foraminal narrowing. No other levels of significant canal stenosis or foraminal narrowing are noted. There is a small hiatal hernia. Coronary artery calcifications and other vascular calcifications are noted. IMPRESSION: Chronic findings as above with no acute abnormality.
--- NOTE | 2020-08-28 01:31 | RADIOLOGY REPORT (SQ) ---
CT abdomen and pelvis without contrast and CT lumbar spine without contrast on 08/28/2020 at 12:36 AM CLINICAL INDICATION: New gross hematuria, paraplegic, back pain, urinary retention TECHNIQUE: Multiple axial images are obtained throughout the abdomen and pelvis and lumbar spine without the administration of contrast. This exam was performed according to our departmental dose-optimization program, which includes automated exposure control, adjustment of the mA and/or kV according to patient size and/or use of iterative reconstruction technique. Total DLP is 704.71 mGy*cm. COMPARISON: 07/04/2019 FINDINGS: Abdomen: There is minimal basilar atelectasis. Increased stool is noted throughout the colon consistent with constipation. There is a small hiatal hernia. There is mild left hydronephrosis and hydroureter to the level of the bladder without definite identifiable cause. There is also mild right hydronephrosis and hydroureter to the level of the bladder. There are no renal or ureteral stones. The unenhanced solid abdominal organs are otherwise unremarkable. Vascular calcifications are noted. There is no abdominal adenopathy. There is no free fluid or free air within the abdomen. The abdominal portion of the GI tract is otherwise unremarkable. Pelvis: Hendrickson catheter is noted in the bladder. The bladder remains significantly distended. A moderate amount of apparent blood and clot is noted layering posteriorly in the bladder. The definite cause of the blood and clot within the bladder is not identified. Small amount of air in the bladder is likely just from recent catheterization. No free fluid is noted in the pelvis. There is no pelvic adenopathy. Pelvic portion of the GI tract including the appendix is otherwise unremarkable. Lumbar spine: There is again noted an old burst fracture at L1 with moderate loss of height and kyphosis centered at that level. There is stable grade 1 spondylolisthesis at L1-2, L2-3 and L3-4. The patient is status post T12-L2 laminectomies. Facet arthropathy is noted throughout the lumbar spine. There are no acute fracture lines. The retropulsed bone at the L1 level produces mild canal stenosis. At the L3-4 level, the spondylolisthesis and facet arthropathy produces mild to moderate canal stenosis and mild left and moderate right foraminal narrowing. At the L4-5 level, mild broad-based disc bulge and facet arthropathy produces mild to moderate canal stenosis and mild right and [id number] left foraminal narrowing. No other levels of significant canal stenosis or foraminal narrowing are noted. IMPRESSION: 1. Distended urinary bladder despite Hendrickson catheter in place. Please correlate with functioning of the catheter. The bilateral ureteral prominence and collecting system prominence may be related to vesicoureteral reflux. 2. Moderate amount of layering blood and clot in the posterior aspect of the bladder without definite identifiable cause. Consider urology consultation for cystoscopy. 3. Increased stool throughout the colon consistent with constipation. 4. Small hiatal hernia. 5. Chronic findings in the lumbar spine as above.
[2020-08-28 07:43] VITALS: BP 121/57
== END 2020-08-28 08:18 | disposition short-term general hospital (02) ==
LOC: ER 19:58
DX: R33.9 Retention of urine, unspecified (principal); R31.0 Gross hematuria; D64.9 Anemia, unspecified; E11.9 Type 2 diabetes mellitus without complications; I10 Essential (primary) hypertension; G82.20 Paraplegia, unspecified; R10.30 Lower abdominal pain, unspecified; K44.9 Diaphragmatic hernia without obstruction or gangrene
CPT/HCPCS: 96376; 99285; 96361; 96374; 96375; 36415; 87086; 85025; 85610; 85730; 87088; 80053; 81001; 72128; 72131; 74176; J2270; A9270 ×2; J2405; J7030